=== PATIENT | female | born 1940 | race African-American/Black ===

== ENCOUNTER 2018-10-02 19:41 | Inpatient (IN) ==
--- NOTE | 2018-10-02 20:22 | Diag Imaging Result Doc PS360 ---
EXAM: CHEST-1 VIEW - 10/02/2018 HISTORY: history of pna TECHNIQUE: Portable chest COMPARISON: 05/23/2018 FINDINGS: Heart size appears normal. There is infiltrate at the lateral left lower lung. There is mild infiltrate at the right midlung. There is no substantial pleural effusion or pneumothorax identified. The patient's chin overlies the left apex. IMPRESSION: Left lower lung and right midlung infiltrates suspicious for pneumonia. Electronically signed by Danish Andrew 10/02/2018 8:20 PM
[2018-10-02 20:51] LABS: BASO# 0.02 X1000 (0.0-0.2); BASO% 0.2 % (0.0-0.8); EOS% 1.5 % (0.0-10.0); HEMATOCRIT 14.1 % (37.0-47.0); IMM GRAN# 0.03 X1000 (0.0-0.04); IMM GRAN% 0.2 % (0.0-0.5); LYMPH# 1.54 X1000 (1.2-3.4); LYMPH% 11.8 % (20.5-51.1); MCHC 26.2 g/dL (33-37); MCV 87.6 FL (81-99); MONO# 0.86 X1000 (0.11-0.59); MONO% 6.6 % (1.7-9.3); MPV 10.4 FL (7.4-10.4); NEUT# 10.36 X1000 (1.4-6.5); NEUT% 79.7 % (42.2-75.2); PLT 607 X1000 (130-400); RBC 1.61 XMIL (4.2-5.4); RDW 23.1 % (11.5-14.5); WBC 13.01 X1000 (4.8-10.8)
[2018-10-02 20:52] LABS: HEMOGLOBIN 3.7 g/dL (12.0-16.0)
[2018-10-02] MEDS ORDERED: TYLENOL PO ONE (21:04)
[2018-10-02 21:10] LABS: AGAP 10; ALB/GLOB RATIO 0.7; ALKALINE PHOSPHATASE 106 U/L (32-104); BUN 21 mg/dL (8-22); CALCIUM 9.3 mg/dL (8.8-10.2); CHLORIDE 102 mmol/L (98-107); COSMO 288; CREATININE 0.5 mg/dL (0.5-0.9); ESTIMATED GFR > 60; GLUCOSE 108 mg/dL (70-104); GOT 19 U/L (10-30); GPT 16 U/L (10-36); SODIUM 143 mmol/L (136-145); TCO2 31 mmol/L (25-35); TOTAL BILIRUBIN 0.22 mg/dL (0.20-1.00); TOTAL PROTEIN 7.5 g/dL (6.3-8.3)
[2018-10-02] MEDS ORDERED: ZOSYN 3.375 GM in NS 50 ML IV ONE (21:28)
[2018-10-02] MEDS ORDERED: VANCOMYCIN 1 GM/NS 1 GM/250 ML IVPB IV ONE (21:28)
--- NOTE | 2018-10-02 22:10 | PROVIDER DOCUMENTATION ---
This chart was entered by Mitzy Phillips Scribe, acting as scribe for Pierre Zaragoza MD. HPI-General Adult - General Chief Complaint: Abnormal Lab[s] Stated Complaint: ABNORMAL LABS/PNEUMONIA Time Seen by Provider: 10/02/18 19:51 Source: patient Allergies/Adverse Reactions: Patient Allergies Allergy/AdvReac Type Severity Reaction Status Date / Time Penicillins Allergy Mild HIVES Verified 10/02/18 21:06 Sulfa (Sulfonamide Allergy Mild RASH Verified 10/02/18 21:06 Antibiotics) metronidazole [From Flagyl] Allergy Unknown Verified 10/02/18 21:06 Home Medications: Home Medication List Medication Instructions Recorded Confirmed Last Taken Type Levothyroxine [Synthroid] 150 microgm GT QAM 06/02/13 10/02/18 02/18/16 06:00 History Allopurinol [Zyloprim] 100 mg GT DAILY 10/16/13 10/02/18 02/17/16 09:00 History Acetaminophen [Tylenol] 650 mg PO Q4-6H PRN PRN #0 tablet 02/22/16 10/02/18 Unknown Rx Albuterol 2.5MG/Ipratrop 0.5MG 3 ml INH BID 03/05/18 10/02/18 Unknown History [Duoneb (A & A)] Cetirizine HCl [Zyrtec] 10 mg GT DAILY 03/05/18 10/02/18 Unknown History Rivastigmine [Exelon 13.3MG/24Hrs] 1 each TD DAILY 03/05/18 10/02/18 Unknown History Sertraline HCl 25 mg GT BID 03/05/18 10/02/18 Unknown History Albuterol Sulfate 2.5 mg IH Q6H PRN PRN 10/02/18 10/02/18 Unknown History Diclofenac 1% Gel [Voltaren 1% Gel] 4 gm TOP BID 10/02/18 10/02/18 Unknown History Gabapentin [Neurontin] 100 mg GT BID 10/02/18 10/02/18 Unknown History Loperamide HCl [Imodium A-D] 2 mg GT TID 10/02/18 10/02/18 Unknown History Loperamide HCl [Imodium A-D] 2 mg PO PRN PRN 10/02/18 10/02/18 Unknown History Lorazepam [Ativan] 0.5 mg GT QHS 10/02/18 10/02/18 Unknown History Melatonin 5 mg GT HS 10/02/18 10/02/18 Unknown History Menthol/Zinc Oxide Ointment 1 applicatn TOP HS 10/02/18 10/02/18 Unknown History [Calmoseptine Ointment] Pyridostigmine [Mestinon] 60 mg PO Q6H 10/02/18 10/02/18 Unknown History Tramadol [Ultram] 50 mg GT Q6H PRN PRN 10/02/18 10/02/18 Unknown History - History of Present Illness -Gen Adult Nature of Presenting Problems: Pt is 78/F presenting to ED from [facility]. Pt is reported to have low H&H as well as chronic pneumonia. Location of Pain/Injury: reports: other (pt does not report any pain) Pain Radiation: reports: no radiation Quality of Pain: reports: none Severity: reports: mild Onset/Duration: reports: just prior to arrival Timing: reports: still present Context/Activities at Onset: reports: none Modifying Factors: improves with: nothing (pt is not reporting any symptoms at this time) Associated Symptoms: reports: denies symptoms Similar Symptoms Previously?: Yes Review of Systems - Adult - REVIEW OF SYSTEMS - ADULT Constitutional: denies: fever Eyes: reports: no symptoms reported Ears, Nose, Mouth & Throat: reports: no symptoms reported Cardiovascular: denies: chest pain, edema Respiratory: reports: no symptoms reported. denies: cough, shortness of breath , wheezing Gastrointestinal: reports: no symptoms reported Genitourinary: reports: no symptoms reported Musculoskeletal: reports: no symptoms reported Integumentary: reports: no symptoms reported Neurological: reports: no symptoms reported. denies: headache/migraines, syncope, tremors Psychiatric: reports: no symptoms reported Endocrine: reports: no symptoms reported Allergic/Immunologic: reports: no symptoms reported All Other Systems: Reviewed and Negative Past History - Adult - PAST MEDICAL HISTORY-ADULT Review of Records: reports: Old Records Reviewed, Nursing Assessment Review, Medications Reviewed, Social history reviewed & non-contributory. Major Childhood Illnesses: reports: denies history Cardiovascular: reports: HTN, hyperlipidemia Respiratory: reports: other (throat cancer) Gastrointestinal: reports: denies history Obstetrical/Gynecological: reports: other (breast cancer) Genitourinary: reports: denies history Musculoskeletal: reports: other (gout) Neurological: reports: dementia Endocrine/Immune: reports: Diabetes, thyroid disorder Other Conditions: reports: other cancer (throat), other - PRIOR SURGERIES/PROCEDURES Surgical/Procedure History: reports: hysterectomy, orthopedic (extremity), other , back/neck - PRIOR HOSPITALIZATIONS Prior Hospitalizations: reports: for other non-related - IMMUNIZATION STATUS Childhood Immunizations: See Nurse Assessment Flu Vaccine: See Nurse Assessment - FAMILY HISTORY Family History: reviewed, not pertinent - SOCIAL HISTORY Smoking: denies, non-smoker Provider spent 3-5 mins advising pt. on dangers of tobacco.: Discussed manners to quit use, and f/u contacts for add'l counseling. Substance Use: none/never Alcohol Use Frequency: never Living Situation: care facility Physical Exam-General - PHYSICAL EXAM-ADULT Initial Vital Signs Reviewed: Yes - CONSTITUTIONAL General Appearance: alert, no apparent distress, thin, other (pt is thin and curled up in the hospital bed.) - EYES Eyes: PERRL/EOMI, pink conjunctivae - HEAD, EARS, NOSE, MOUTH & THROAT HENMT: normocephalic/atraumatic, moist mucous membranes, normal ENT inspection, TMs normal - NECK Neck: non-tender, full range of motion, supple, normal inspection - RESPIRATORY Respiratory: chest non-tender, lungs clear, normal breath sounds - CARDIOVASCULAR Cardiovascular: normal peripheral pulses, regular rate, rhythm, no edema - GASTROINTESTINAL (ABDOMEN) Abdominal Exam: normal bowel sounds, non tender, soft - LYMPHATIC Lymphatic: no adenopathy - MUSCULOSKELETAL Back Exam: normal inspection, no CVA tenderness, no vertebral tenderness Extremity: normal range of motion, non-tender, normal gait, normal inspection - SKIN Integumentary: normal color, warm/dry - NEUROLOGIC Neurologic: grossly normal - PSYCHIATRIC Psych/Mental Status: normal mood/affect, normal thought content, normal thought process, oriented x 3 (pt is oriented, but slow to speak) Progress - PLAN OF CARE/RESULTS Progress/Plan/Lab Results: Vital Signs - 8 hr 10/02/18 19:50 10/02/18 19:51 10/02/18 19:57 Temperature 98.2 F Pulse Rate 96 H Respiratory Rate 18 Blood Pressure 117/63 117/63 O2 Sat by Pulse Oximetry 99 98 98 10/02/18 20:00 10/02/18 20:02 10/02/18 20:10 Temperature Pulse Rate 94 H 96 H 108 H Respiratory Rate 18 19 21 Blood Pressure 103/48 O2 Sat by Pulse Oximetry 100 100 100 10/02/18 20:20 10/02/18 20:30 Temperature Pulse Rate 98 H 96 H Respiratory Rate 20 20 Blood Pressure O2 Sat by Pulse Oximetry 100 100 Orders Category Date Time Status cxr [CHEST-1 VIEW] [RAD] Stat Exams 10/02/18 19:53 Completed CBC WITH ELECTRONIC DIFF [HEME] Stat Lab 10/02/18 20:22 Ordered COMPREHENSIVE METABOLIC PANEL [CHEM] Stat Lab 10/02/18 20:22 Ordered LACTATE, PLASMA [CHEM] Stat Lab 10/02/18 20:22 Ordered OCCULT BLOOD SCREENING [STOOL] Stat Lab 10/02/18 19:56 Uncollected PRO B-NATRIURETIC PEPTIDE Stat Lab 10/02/18 20:22 Ordered TROPONIN T Stat Lab 10/02/18 20:22 Ordered TYPE & SCREEN [BBK] Stat Lab 10/02/18 20:30 Ordered Pt found to be anemic, transfusion ordered, CXR shows PNA, ordererd abx, will admit Result Diagrams: 10/02/18 20:22 10/02/18 20:22 Departure - Departure Date of Disposition Decision: 10/02/18 Time of Disposition Decision: 22:08 DIAGNOSIS: Anemia Qualifiers: Anemia type: unspecified type Qualified Code(s): D64.9 - Anemia, unspecified Pneumonia Qualifiers: Pneumonia type: due to unspecified organism Laterality: bilateral Lung location : unspecified part of lung Qualified Code(s): J18.9 - Pneumonia, unspecified organism Disposition: ADMITTED INPATIENT 09 Certified Medical Emergency: Emergent Condition: Critical Referrals and Follow-Ups: Robbin Song MD [Primary Care Provider] - - Critical Care Note This patient required my direct & personal management of CC.: No Attestation - Physician/ MARCE Attestation Patient care was provided by Advanced Practice Provider:: No The physician spent face to face time with patient:: Yes Advanced Practice Provider documentation review:: Supervising physician onsite and consulted in the evaluation and care of this patient. The physician did have a face to face encounter with the patient. This chart was documented by the indicated scribe, (Phillips,Mitzy L., Scribe) and accurately reflects the services I performed and decisions made by me, Pierre Zaragoza MD, as attested by the provider's signature.
[2018-10-02] MEDS ORDERED: NS 1,000 ML IV ONE (22:26)
[2018-10-02] MEDS ORDERED: NS 1,000 ML ONE (22:28)
[2018-10-02] MEDS ORDERED: CLINDAMYCIN 600 MG/D5W 600 MG/50 ML IVPB IV SCH (22:30)
[2018-10-02] MEDS ORDERED: TYLENOL WITH CODEINE #3 PO ONE (22:36)
[2018-10-02] MEDS ORDERED: ZOFRAN IV PRN (22:37)
[2018-10-02] MEDS ORDERED: VANCOMYCIN IV PER PHARMACY MISC SCH (22:45)
[2018-10-02 23:30] LABS: IRON SATURATION 3 %; TIBC 246 ug/dL
[2018-10-02] MEDS ORDERED: AZACTAM 1 GM in NS 50 ML IV SCH (23:30)
--- NOTE | 2018-10-02 23:30 | HISTORY AND PHYSICAL ---
PRIMARY CARE PROVIDER: Robbin Song. CHIEF COMPLAINT: Low blood count. HISTORY OF PRESENT ILLNESS: This is an 78-year-old female who comes in from [facility]. She was sent here from the emergency room related to a low hemoglobin and hematocrit. She has a past medical history of laryngeal cancer with dementia, hypothyroidism, myasthenia gravis, clinical depression, gout and breast cancer. She had labs tested today because the daughter felt that she looked pale. At [facility] was found to have a low hemoglobin and hematocrit. Was repeated in the emergency room. The hemoglobin and hematocrit were noted to be 3.7 and 14.1 respectively. The patient recently was found to have a displaced G tube which was replaced I believe 10 days ago in the emergency room. It is now noted to be in correct position per abdominal x-ray that was completed. The daughter stated that around 7 days ago she had a stool that she felt may have some blood in it. An occult stool is still pending. The patient will be admitted for further evaluation and treatment. PAST MEDICAL HISTORY: See HPI. PREVIOUS SURGICAL HISTORY: Right BKA, right mastectomy, hysterectomy, C-spine surgery, G tube placement and tracheostomy. SOCIAL HISTORY: Stopped smoking 15 years ago. No alcohol or illicit drugs. Has lived in the senior living for the past 4 years. ALLERGIES: Penicillin, sulfa and Flagyl. REVIEW OF SYSTEMS: A 14-point review of systems could not be accurately assessed with the patient. She was somewhat short of breath during the examination. She did answer some questions. Stated that she was not in any pain until her leg was examined. She has a skin ulceration on her left lower extremity which is tender to palpation. Other pertinent positives for admission are listed under the HPI. PHYSICAL EXAMINATION: VITAL SIGNS: Temperature 98.2, pulse 96, respirations 20, blood pressure 103/48 , oxygen saturation 100% on room air. GENERAL: Pleasant 78-year-old female. She is emaciated and chronically ill appearing, oriented to person only. She is known to have dementia. Daughter is at bedside, very attentive. HEENT: Head is atraumatic, normocephalic. Pupils equal, round, reactive to light. Extraocular eye movement is intact. Sclerae are anicteric. Conjunctiva is pale. Oral mucosa is dry. NECK: Supple. No JVD. No thyromegaly. Trachea is midline. No cervical lymphadenopathy. CARDIAC: S1, S2 appreciated. No murmurs, gallops, rubs. LUNGS: Coarse bilaterally. Mild expiratory wheeze. Symmetric rise and fall with respirations. ABDOMEN: Soft, nondistended, nontender. PEG tube in place. No erythema noted. Bowel sounds present, normoactive. No pulsatile mass. No organomegaly. EXTREMITIES: Right BKA noted. Left lower extremity mid calf there is a 2 x 2 area of breakdown which has a purulent drainage. No clubbing, cyanosis, edema. One-plus pedal pulses. NEUROLOGICAL: Oriented to person. No focal or motor deficits. Otherwise nonfocal examination. SKIN: Pale. Area of breakdown noted on extremity. Otherwise clean, dry and intact. DIAGNOSTIC DATA: Chest x-ray shows left lower lobe and right mid lung infiltrates. LABORATORY DATA: WBC 13.01. Hemoglobin 3.7. Hematocrit 14.1. Platelet count 607. Chemistry panel within normal limits other than a glucose of 108. ASSESSMENT AND PLAN: 1. Profound anemia. The daughter had stated that she had a stool which was suspicious for blood. We will start on PPI 40 mg IV q.12 hours. Consult GI. Occult stool is pending. Transfuse 2 units of packed red blood cells. Recheck laboratory data and trend hemoglobin and hematocrit. We will also check iron indices. 2. Aspiration pneumonia versus hospital-acquired pneumonia. We will treat patient with Azactam, vancomycin and clindamycin related to her penicillin and Flagyl allergies. We will order blood cultures. Continue DuoNebs. 3. Fluid volume depletion. We will give normal saline until blood is ready to transfuse. 4. Myasthenia gravis. Continue home medications. 5. Dementia. Continue home medication. 6. Hypothyroidism. Continue Synthroid. 7. Skin ulceration. This will be cultured and rebandaged. Should be suitably covered by antibiotic selection above for pneumonia. Further recommendations per patient clinical course. Dictated by ALEXANDRA Hamilton for Nilesh Monroy MD cc: ALEXANDRA Hamilton MD Kirk L. Jackson, MD Pt's exam was noted for severe pallor, bilateral coarse crepitations and 2 cm ulcer in the popliteal area packed with gauze. It appears that anemia could have been due to chronic GI bleed and or some degree of bone marrow suppression. Anemia work up to include reticulocyte count would be beneficial. Discussed and agree with abx regimen. MTDD
[2018-10-02 23:34] LABS: TOTAL IRON 8 ug/dL (49-151); UNBOUND IRON 238 ug/dL (112-346)
[2018-10-02] MEDS: MELATONIN GT SCH (23:44)
[2018-10-02] MEDS: MESTINON PO SCH (23:44)
[2018-10-02] MEDS: ATIVAN GT SCH (23:44)
[2018-10-02 23:46] LABS: FERRITIN 153 ng/mL (13-150)
[2018-10-02] MEDS: PROTONIX IV SCH (23:48)
[2018-10-02] MEDS: SODIUM CHLORIDE 0.9% INJ SCH (23:48)
[2018-10-03] MEDS: AZACTAM 1 GM in NS 50 ML IV SCH ×4 (00:14→17:20)
[2018-10-03] MEDS: CLINDAMYCIN 600 MG/D5W 600 MG/50 ML IVPB IV SCH ×5 (00:44→23:06)
[2018-10-03] MEDS ORDERED: CALMOSEPTINE OINTMENT TOP PRN (01:53)
[2018-10-03 03:04] LABS: URINE SOURCE CATH
[2018-10-03 03:07] LABS: BILIRUBIN URINE NEGATIVE (NEGATIVE); BLOOD URINE SMALL (NEGATIVE); COLOR ORANGE; GLUCOSE URINE NEGATIVE (NEGATIVE); KETONE URINE NEGATIVE (NEGATIVE); LEUKOCYTES URINE LARGE (NEGATIVE); NITRITE URINE NEGATIVE (NEGATIVE); PH URINE 6.5; PROTEIN URINE 30 mg/dL (NEGATIVE); SP GRAVITY URINE 1.015; TURBIDITY URINE TURBID (CLEAR); UROBILINOGEN URINE NORMAL (NORMAL)
[2018-10-03 03:11] LABS: UR EPITHELIAL CELLS <10 /HPF (<10); URINE BACTERIA 4+ /HPF; URINE RBC <10 /HPF (<10); URINE WBC TNTC /HPF (<10); URINE YEAST PRESENT
[2018-10-03] MEDS: SYNTHROID GT SCH (06:30)
[2018-10-03] MEDS: MESTINON PO SCH ×4 (06:30→22:30)
[2018-10-03 07:07] LABS: BASO# 0.04 X1000 (0.0-0.2); BASO% 0.2 % (0.0-0.8); EOS# 0.28 X1000 (0.0-0.7); EOS% 1.5 % (0.0-10.0); HEMATOCRIT 28.9 % (37.0-47.0); HEMOGLOBIN 9.1 g/dL (12.0-16.0); IMM GRAN# 0.15 X1000 (0.0-0.04); IMM GRAN% 0.8 % (0.0-0.5); LYMPH# 1.45 X1000 (1.2-3.4); LYMPH% 7.7 % (20.5-51.1); MCH 28.3 PG (27-31); MCHC 31.5 g/dL (33-37); MCV 89.8 FL (81-99); MONO# 1.02 X1000 (0.11-0.59); MONO% 5.4 % (1.7-9.3); MPV 10.5 FL (7.4-10.4); NEUT# 15.97 X1000 (1.4-6.5); NEUT% 84.4 % (42.2-75.2); PLT 495 X1000 (130-400); RBC 3.22 XMIL (4.2-5.4); RDW 17.9 % (11.5-14.5); WBC 18.91 X1000 (4.8-10.8)
[2018-10-03 07:31] LABS: AGAP 12; BUN 18 mg/dL (8-22); CALCIUM 8.3 mg/dL (8.8-10.2); CHLORIDE 105 mmol/L (98-107); COSMO 283; CREATININE 0.5 mg/dL (0.5-0.9); ESTIMATED GFR > 60; GLUCOSE 93 mg/dL (70-104); POTASSIUM 4.3 mmol/L (3.5-5.1); SODIUM 141 mmol/L (136-145); TCO2 24 mmol/L (25-35)
[2018-10-03] MEDS: DUONEB (A & A) INH SCH ×2 (07:37→19:20)
[2018-10-03] MEDS: ALBUTEROL NEB INH PRN (08:00)
[2018-10-03] MEDS: ZOLOFT GT SCH ×2 (10:04→22:29)
[2018-10-03] MEDS: PROTONIX IV SCH ×2 (10:05→22:29)
[2018-10-03] MEDS: SODIUM CHLORIDE 0.9% INJ SCH ×2 (10:05→22:29)
[2018-10-03] MEDS: ZYRTEC SCH (10:05)
[2018-10-03] MEDS: NEURONTIN GT SCH ×2 (10:05→22:29)
[2018-10-03] MEDS: IMODIUM GT SCH ×3 (10:05→22:29)
[2018-10-03] MEDS: EXELON 13.3MG/24HRS TD SCH (11:36)
--- NOTE | 2018-10-03 11:40 | PROGRESS NOTE ---
DATE: 10/03/2018 SUBJECTIVE: The patient is nonverbal and no acute issues noted as per nursing staff. OBJECTIVE: Vital Signs: Temperature 98 degrees, heart rate 89, respiratory rate 12, blood pressure 104/52, and O2 saturation 100% pain on 2 L nasal cannula. General: This is a chronically ill-appearing and cachectic 78-year-old, female lying in bed in no acute distress. HEENT: Head is normocephalic and atraumatic. Neck: No JVD noted. No carotid bruits. No lymphadenopathy. No thyromegaly. Cardiovascular: S1, S2 heard. No murmurs, gallops, or rubs. Regular rate and rhythm. Respiratory: Coarse breath sounds noted in both pulmonary boswell. Minimal expiratory wheezing noted. Patient is not using any accessory muscles or having work of breathing. Abdomen: Soft. Nontender to palpation. PEG tube in place. No erythema noted around it. Bowel sounds present. No organomegaly. Extremities : Right below-the- knee amputation. Left lower extremity, there is a lesion with 2 x 2 area breakdown which has minimal purulent drainage not covered by dressing. There is no clubbing or cyanosis noted. Peripheral pulses present but faint. Neurological: Patient is nonverbal. Moved apparently for extremities slowly. LABORATORY DATA: White cell count 18.91, hemoglobin 9.1, hematocrit 28.9 and platelets 495,000. Normal BMP. Prealbumin is 10.4. ASSESSMENT AND PLAN: 1. Profound anemia. Apparently at admission, she was found to have hemoglobin of 3.7. So far, she has received 2 units of blood. Hemoglobin is 9.1 today. I am not sure if the initial hemoglobin count was real or not because with 2 units of blood I do not expect to have an increase of almost 6 points of hemoglobin. In any case, with a 9.1 hemoglobin, I am happy with that and I am not planning to do any more transfusions. Gastroenterology has been consulted for possible GI bleeding. From my standpoint, considering history of laryngeal cancer, I am going to order a CT of abdomen and pelvis and also of the chest that could explain this anemia. 2. Healthcare associated pneumonia. Patient lives in intermediate so at this point, patient is on vancomycin, clindamycin and Azactam. The patient is allergic to penicillin and Flagyl. Blood cultures are still pending. We will continue with same management. We will continue with Alison. 3. Myasthenia gravis. We will continue home medications. 4. Severe protein calorie malnutrition. We will consult dietitian. 5. Advanced dementia. We will continue home medication. 6. Hypothyroidism. We will continue with Synthroid. 7. Skin ulceration. Patient has been re-bandaged, and cultures have been ordered. It looks like there is some ruptured tendons below left knee so will consult General surgery to see if there is anything it can be done for her. 8. Disposition depending upon the clinical course. cc: Adria Morales MD MTDD
--- NOTE | 2018-10-03 13:02 | Diag Imaging Result Doc PS360 ---
EXAM: CT THORAX/ABD/PELVIS W/CON INDICATION: severe anemia, history of laryngeal cancer TECHNIQUE: This exam was performed using automated exposure control, adjustment of mA or kV according to patient size, and/or use of iterative reconstruction technique. COMPARISON: CT chest dated 01/13/[address] abdomen dated 01/02/2018 FINDINGS: CHEST: There are patchy infiltrates consistent with pneumonia seen bilaterally involving the right upper lobe, right lower lobe, left upper lobe, and left lower lobe. It is worst on the left. There is a small left pleural effusion and there is atelectasis at the left lung base. There is a background of fibrosis and there is stable bronchiectasis at the lower lobes. There is mediastinal and hilar lymphadenopathy that has worsened somewhat during the interval. At least part of this may be reactive. There is extensive mucous plugging on the left, especially in the left mainstem bronchus. ABDOMEN/PELVIS: The gallbladder is distended and there is moderate intrahepatic and extrahepatic biliary dilatation as well as pancreatic ductal dilatation this is worsened during the interval. No gallbladder wall thickening is appreciated. The liver is essentially unremarkable. The spleen and adrenal glands are grossly unremarkable. There are a couple of simple renal cysts on the right. The urinary bladder is partially distended. It is grossly unremarkable, otherwise. There is a moderate rectal fecal impaction. The diameter of the impacted rectum measures up to 7.1 cm. There is uncomplicated diverticulosis coli. A PEG tube is in place. There is no evidence of bowel obstruction. The remainder of the GI tract is essentially unremarkable. 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 The left iliac crest sclerotic focus seen on the previous study is unchanged. No new bony lesions are identified. IMPRESSION: 1.Patchy infiltrates throughout both lungs indicating pneumonia. 2.Left mainstem bronchus mucous plugging. 3.Bilateral atelectasis is worse on the left. 4.Mediastinal and hilar lymphadenopathy that appears to be at least slightly worse than the previous study. 5.Distended gallbladder as well as biliary and pancreatic ductal dilatation that appears more prominent than previously. 6.Rectal fecal impaction. 7.Other incidental/nonacute findings detailed above. Electronically signed by Jesus Joseph 10/03/2018 1:00 PM
[2018-10-03 16:10] LABS: ALBUMIN 2.7 g/dL (3.5-5.0); MAGNESIUM 2.5 mg/dL (1.5-2.7); PHOSPHORUS 3.5 mg/dL (2.7-4.5)
[2018-10-03] MEDS: TYLENOL WITH CODEINE #3 PO PRN (17:46)
--- NOTE | 2018-10-03 18:28 | GASTROENTEROLOGY CONSULTATION ---
DATE: 10/03/2018 REASON FOR CONSULTATION: Severe iron deficiency anemia. HISTORY OF PRESENT ILLNESS: Ms. Lyndsay Lawrence is 78-year-old woman with past medical history of laryngeal cancer, dementia, hypothyroidism, myasthenia gravis, depression, gout , right BKA, who presents from [facility] with profound anemia. History unable to be obtained from patient given her underlying dementia. Per report, the daughter felt that the patient was pale looking at the fpc, and a hemoglobin and hematocrit was checked that revealed a H/H of 3.7 and 14.1 respectively. The patient recently had displaced G-tube which was replaced about 10 days ago in the emergency room. There is some question of whether the patient has some blood in her stool recently. PAST MEDICAL HISTORY: As per HPI. PAST SURGICAL HISTORY: Right BKA, right mastectomy, hysterectomy, C-spine surgery, G-tube placement and tracheostomy. SOCIAL HISTORY: Prior smoker, quit smoking 15 years ago. No drug use or alcohol. She has been living in a fpc for the last 4 years. ALLERGIES: To penicillin, sulfa, and Flagyl. REVIEW OF SYSTEMS: Unable to obtain given dementia PHYSICAL EXAMINATION: Temperature 98 degrees, heart rate 89, blood pressure 104 /52, O2 saturation 100% on 2 L nasal cannula.General: Patient is awake, alert, no acute distress, severely cachectic, frail, older than stated age. HEENT: Sclerae anicteric. Moist mucous membranes. Neck: No JVD. No lymphadenopathy. Cardiac: Regular rate and rhythm. No murmurs. Lungs: Clear to auscultation bilaterally. Abdomen: PEG site clean, dry, and intact. Abdomen nondistended. Bowel sounds present. No rebound or guarding. Nontender. Extremities: A right BKA. Left lower extremity thin, no clubbing, cyanosis, or edema. Neuro: Patient is moving all extremities symmetrically, nonfocal. LABS: White count of 18.9, hemoglobin 9.1 after 2 units of packed red blood cells from 3.7, platelets of 495,000. Sodium 143, potassium 4.3, chloride 105, bicarb 24, BUN 18, creatinine 0.5, glucose 93, calcium 8.3, prealbumin 2.4, iron 8, TIBC 246, ferritin 153, vitamin B12 1585, folate 9.7, total bilirubin 0.22, AST 19, ALT 16, alkaline phosphatase 106, troponin 0.026, proBNP of 1764. UA shows proteinuria, large leukocyte esterase consistent with urinary tract infection. IMAGING: Chest x-ray on 10/02 showed left lower lung and right midlung infiltrate suspicious for pneumonia. A CT chest, abdomen, pelvis was done this morning and results are pending. ASSESSMENT AND PLAN: Ms Lyndsay Lawrence is an 78-year-old woman with a history of laryngeal cancer, severe protein calorie malnutrition, who presents with new onset severe iron deficiency anemia without any obvious overt gastrointestinal bleeding currently. Hemoglobin is 9.1 after 2 units from 3.7. Per report there was some question of whether she had some rectal bleeding prior to being admitted. No hematemesis or vomiting. Gastrostomy tube is in place. She is not on any blood thinners. She has been started on pantoprazole 40 mg twice a day as well as broad-spectrum antibiotics for infection. We will continue to monitor her hemoglobin and hematocrit q.12 to 24 hours. Transfuse as needed to maintain hemoglobin 7-8. The patient is severely cachectic and malnourished. Recommend a nutrition consult for optimal tube feed recommendation. There needs to be a discussion with family as well as probably palliative care about goals of care at this time as it would be very difficult for us to prep her and to undergo colonoscopy and she is severely debilitated which would make the procedure high risk for anesthesia. For now will treat her supportively. Please call with any questions or concerns. Will follow with you. MTDD
[2018-10-03] MEDS: MELATONIN GT SCH (22:29)
[2018-10-03] MEDS: ATIVAN GT SCH (22:29)
--- NOTE | 2018-10-03 23:26 | GENERAL SURGERY CONSULTATION ---
DATE: 10/03/2018 REQUESTING PHYSICIAN: Dr. Bobby. CONSULT CONCERNING: Left leg wound. HISTORY OF PRESENT ILLNESS: An 78-year-old female who comes from [facility] With low blood count. She has got a past medical history laryngeal cancer, dementia and hypothyroidism, myasthenia gravis, clinical depression, gout and breast cancer. She was initially admitted again from a low hematocrit and hemoglobin and patient has been admitted for further evaluation. Is also noted that she had a wound noted to the popliteal fossa on her left leg. She apparently had some compression stockings on while the nursing facility. Wound Care saw the patient and I was asked to evaluate the patient. The patient is currently nonverbal. PAST MEDICAL HISTORY: Includes laryngeal cancer, dementia, hypothyroidism, myasthenia gravis, clinical depression, gout, history of breast cancer. PAST SURGICAL: Includes right BKA, mastectomy, hysterectomy, C-spine surgery, G-tube placement and tracheostomy. SOCIAL HISTORY: [facility]. ALLERGIES: Penicillin, sulfa, Flagyl. FAMILY HISTORY: Unobtainable secondary to patient's mental status. REVIEW OF SYSTEM: Unable to obtain secondary to patient's mental status. PHYSICAL EXAMINATION: Vital Signs: Patient is currently afebrile but has a heart rate in the 100s, blood pressure is 164/83. General: Elderly female looks chronically ill. HEENT: Normocephalic, atraumatic. Pupils equal, round, reactive to light. Mucous membranes moist. Oropharynx benign. Neck: Supple. Trachea midline. Cardiovascular: Regular rate and rhythm. Lungs: Grossly clear. Abdomen: Soft, nontender, nondistended. Extremities: BKA noted on the right side. In the lower extremity there is a wound noted to the popliteal fossa but does not have any active purulent drainage. There is an exposed tendon this area measures probably 2 cm x 2 cm. Neurologic: No obvious focal deficits but patient is nonverbal at this time. Skin: Wound as noted above. Vascular: All extremities appear to be perfused. LABORATORY: White blood cell count is 18, hematocrit 28, platelet count 495,000. CT scan independently reviewed and radiology report reviewed. There is signs of pneumonia, hilar and mediastinal lymphadenopathy, some distended gallbladder, fecal impaction. ASSESSMENT AND PLAN: An 78-year-old female with leg wound. Leg wound. At this time, agree with wound care assessment and plan. Will continue with Hydrogel, cover with petroleum gauze and monitor the wound closely and change twice a day. At this point will try to avoid any kind of surgical intervention. cc: Otf Amaya MD
[2018-10-04] MEDS: AZACTAM 1 GM in NS 50 ML IV SCH ×3 (00:13→17:41)
[2018-10-04] MEDS: SYNTHROID GT SCH ×2 (05:14→06:00)
[2018-10-04] MEDS: MESTINON PO SCH ×4 (05:14→22:08)
[2018-10-04 06:49] LABS: BASO# 0.02 X1000 (0.0-0.2); BASO% 0.1 % (0.0-0.8); EOS# 0.29 X1000 (0.0-0.7); EOS% 1.9 % (0.0-10.0); HEMATOCRIT 28.4 % (37.0-47.0); HEMOGLOBIN 8.9 g/dL (12.0-16.0); IMM GRAN# 0.04 X1000 (0.0-0.04); IMM GRAN% 0.3 % (0.0-0.5); LYMPH# 1.26 X1000 (1.2-3.4); LYMPH% 8.3 % (20.5-51.1); MCH 27.8 PG (27-31); MCHC 31.3 g/dL (33-37); MCV 88.8 FL (81-99); MONO% 4.6 % (1.7-9.3); MPV 10.1 FL (7.4-10.4); NEUT# 12.96 X1000 (1.4-6.5); NEUT% 84.8 % (42.2-75.2); PLT 505 X1000 (130-400); RDW 18.4 % (11.5-14.5); WBC 15.27 X1000 (4.8-10.8)
[2018-10-04 07:06] LABS: AGAP 10; BUN 15 mg/dL (8-22); CHLORIDE 107 mmol/L (98-107); COSMO 284; CREATININE 0.4 mg/dL (0.5-0.9); ESTIMATED GFR > 60; GLUCOSE 105 mg/dL (70-104); SODIUM 142 mmol/L (136-145); TCO2 25 mmol/L (25-35)
[2018-10-04 07:18] LABS: EOS 6 % (1-10); LYMPHS 2 % (21-51); NRBC 1 % (0-0); SEGS 92 % (42-75)
[2018-10-04] MEDS: CLINDAMYCIN 600 MG/D5W 600 MG/50 ML IVPB IV SCH ×2 (08:11→17:05)
[2018-10-04] MEDS: EXELON 13.3MG/24HRS TD SCH (08:12)
[2018-10-04] MEDS: NEURONTIN GT SCH ×2 (08:12→22:09)
[2018-10-04] MEDS: ZYRTEC SCH (08:12)
[2018-10-04] MEDS: IMODIUM GT SCH ×3 (08:12→22:09)
[2018-10-04] MEDS: ZOLOFT GT SCH ×2 (08:13→22:09)
[2018-10-04] MEDS: DUONEB (A & A) INH SCH ×2 (08:14→19:52)
[2018-10-04] MEDS: SODIUM CHLORIDE 0.9% INJ SCH ×2 (11:37→22:08)
[2018-10-04] MEDS: PROTONIX IV SCH ×2 (11:37→22:08)
--- NOTE | 2018-10-04 12:26 | PROGRESS NOTE ---
DATE: 10/04/2018 SUBJECTIVE: Patient is verbal today. The patient reports no complaints at this time. She is not in pain. Patient has hoarseness probably from surgery from laryngeal cancer. OBJECTIVE: Vital Signs: Temperature 98.6 degrees, heart rate 86, respiratory rate 18, blood pressure 150/67, O2 saturation 93% on 3 L nasal cannula. General examination: This is a chronically ill-looking, 78-year-old female, lying in bed in no acute distress. HEENT: Head is normocephalic, atraumatic. Mucous membranes very dry. Neck: No JVD noted, no thyromegaly. There is a small depression in the front of the neck that looks like an old surgery. No cervical lymphadenopathy noted. Cardiovascular exam: S1, S2 heard. No murmurs, gallops, or rubs. Regular rate and rhythm. Respiratory exam: Coarse breath sounds in both pulmonary bases, along with mild expiratory wheezing as well. The patient is not using any accessory muscles or having work of breathing. Abdomen: Soft, nontender to palpation. PEG tube in place. No erythema around it. No signs of peritoneal irritation. Extremities: Right itteg-gos-vgnv amputation noted. Left lower extremity with midcalf covered by dressing. Neurological exam: Patient is awake, oriented to person only. LABORATORY DATA: White cell count 15.37, hemoglobin 8.9, hematocrit 28.4, platelets 505. BMP normal. ASSESSMENT AND PLAN: 1. Profound multifactorial anemia. There have not been any signs of gastrointestinal bleeding. So far, she has received 2 units of blood. Hemoglobin is stable at 8.9 today. The patient evaluated by Dr. Mujica from Gastroenterology. She is not of course a candidate for any procedure at this time. Will manage this patient conservatively checking complete blood count daily and transfuse if needed. We will follow recommendations. 2. Healthcare-associated pneumonia. The patient is on vancomycin, clindamycin and Azactam. Patient is allergic to penicillin and Flagyl. Blood cultures still pending. We will continue with same management. 3. Skin ulceration in the left leg. Dr. Amaya has been consulted because there was tendon rupture exposed in that area, but according to General Surgery not a candidate for any procedure as she is a high risk surgical candidate. We will continue to do wound care. 4. Myasthenia gravis. We will continue home medications. 5. Severe protein calorie malnutrition. Dietitian has been consulted to try to enhance her nutrition. 6. Advanced dementia. Will continue home medications. 7. Hypothyroidism. We will continue with Synthroid. 8. Disposition: At this point, we will continue to treat pneumonia. No need for any procedure at this time. We will continue to monitor. cc: Adria Morales MD
--- NOTE | 2018-10-04 13:10 | GENERAL SURGERY PROGRESS NOTE ---
DATE: 10/04/2018 SUBJECTIVE: Patient doing about the same. Wound still dressed to the left lower extremity. We will continue local wound care and monitor the wound. cc: Otf Amaya MD
[2018-10-04] MEDS: VANCOMYCIN 1 GM/NS 1 GM/250 ML IVPB IV SCH (14:33)
[2018-10-04] MEDS: TYLENOL WITH CODEINE #3 PO PRN ×2 (17:47→22:09)
[2018-10-04] MEDS: MELATONIN GT SCH (22:09)
[2018-10-04] MEDS: ATIVAN GT SCH (22:09)
[2018-10-05] MEDS: AZACTAM 1 GM in NS 50 ML IV SCH ×3 (00:23→22:17)
[2018-10-05] MEDS: CLINDAMYCIN 600 MG/D5W 600 MG/50 ML IVPB IV SCH ×3 (00:24→22:17)
[2018-10-05] MEDS: SYNTHROID GT SCH (05:10)
[2018-10-05] MEDS: MESTINON PO SCH ×4 (05:10→22:20)
[2018-10-05 06:56] LABS: BASO# 0.01 X1000 (0.0-0.2); BASO% 0.1 % (0.0-0.8); HEMATOCRIT 29.1 % (37.0-47.0); HEMOGLOBIN 9.1 g/dL (12.0-16.0); IMM GRAN# 0.09 X1000 (0.0-0.04); IMM GRAN% 0.7 % (0.0-0.5); LYMPH# 1.22 X1000 (1.2-3.4); MCHC 31.3 g/dL (33-37); MCV 86.4 FL (81-99); MONO# 0.69 X1000 (0.11-0.59); MONO% 5.1 % (1.7-9.3); MPV 10.3 FL (7.4-10.4); NEUT# 11.12 X1000 (1.4-6.5); NEUT% 82.1 % (42.2-75.2); PLT 562 X1000 (130-400); RBC 3.37 XMIL (4.2-5.4); RDW 18.2 % (11.5-14.5); WBC 13.53 X1000 (4.8-10.8)
--- NOTE | 2018-10-05 07:07 | GENERAL SURGERY PROGRESS NOTE ---
DATE: 10/05/2018 SUBJECTIVE: Patient moved to room 300. She is doing about the same. Wound is still dressed to the left lower extremity. Will continue local wound care and monitoring. cc: Otf Amaya MD
[2018-10-05 07:20] LABS: AGAP 11; BUN 9 mg/dL (8-22); CALCIUM 8.3 mg/dL (8.8-10.2); CHLORIDE 100 mmol/L (98-107); COSMO 272; CREATININE 0.3 mg/dL (0.5-0.9); ESTIMATED GFR > 60; GLUCOSE 116 mg/dL (70-104); POTASSIUM 3.8 mmol/L (3.5-5.1); SODIUM 136 mmol/L (136-145); TCO2 25 mmol/L (25-35)
[2018-10-05 07:21] LABS: ALBUMIN 2.6 g/dL (3.5-5.0); MAGNESIUM 1.8 mg/dL (1.5-2.7); PHOSPHORUS 3.2 mg/dL (2.7-4.5)
[2018-10-05] MEDS: DUONEB (A & A) INH SCH ×2 (07:40→19:34)
[2018-10-05 07:44] LABS: EOS 2 % (1-10); LYMPHS 14 % (21-51); SEGS 84 % (42-75)
[2018-10-05] MEDS: ZOLOFT GT SCH ×2 (08:44→22:20)
[2018-10-05] MEDS: IMODIUM GT SCH ×3 (08:44→22:20)
[2018-10-05] MEDS: EXELON 13.3MG/24HRS TD SCH (08:44)
[2018-10-05] MEDS: NEURONTIN GT SCH ×2 (08:44→22:20)
[2018-10-05] MEDS: ZYRTEC SCH (08:44)
[2018-10-05] MEDS: PROTONIX IV SCH ×2 (10:00→22:20)
[2018-10-05] MEDS ORDERED: VANCOMYCIN IV SCH (10:00)
[2018-10-05] MEDS ORDERED: NS IV SCH (10:00)
--- NOTE | 2018-10-05 10:46 | PROGRESS NOTE ---
DATE: 10/05/2018 SUBJECTIVE: The patient is more verbal today, although she had hoarseness, probably from laryngeal cancer. Apparently, no complaints today. OBJECTIVE: Vital Signs: Temperature 97.7 degrees, heart rate 71, respiratory rate 19, blood pressure 136/70, O2 saturation 97% on room air. General Examination: This is a chronically ill looking, malnourished, 78-year-old, female lying in bed, in no acute distress. HEENT: Head is normocephalic and atraumatic. Mucous membranes are dry. Neck: No JVD noted. There is a small depression in the front of the neck that looks like old surgery from laryngeal cancer. No cervical lymphadenopathy noted. Cardiovascular Examination: S1 and S2 heard. No murmurs, gallops, or rubs. Regular rate and rhythm. Respiratory Examination: Coarse breath sounds still present in both pulmonary bases with mild expiratory wheezing as well. Patient is not using any accessory muscles or having work of breathing. Abdomen: Soft, nontender to palpation. PEG tube in place. No erythema around it. No signs of peritoneal irritation. Extremities: Right gtzee-agn-dmsz amputation noted. Left lower extremity with mid calf covered by a dressing. Neurological Examination: The patient is awake. Oriented in person only. Moves 4 extremities spontaneously. Laboratory Data: White cell count 17.53, hemoglobin 9.1, hematocrit 29.1, platelets 562,000. CBC and BMP normal. ASSESSMENT AND PLAN: 1. Profound multifactorial anemia. We were suspecting gastrointestinal bleeding but there has not been any signs of bleeding coming from the gastrointestinal tract. Gastroenterology has evaluated this patient. Of course, she is not a candidate for any procedure considering her comorbidities. At this point, we will continue checking CBC daily. We will transfuse if needed. 2. Healthcare-associated pneumonia. Patient is on vancomycin, clindamycin, and Azactam. The patient is allergic to penicillin and Flagyl. Cultures still pending. We will continue with the same management. 3. Skin ulceration of the left leg. Surgery recommended wound care but not a surgical candidate. 4. Myasthenia gravis. We will continue home medications. 5. Severe protein calorie malnutrition. Dietitian has been consulted. Patient is receiving nasogastric tube at 35 mL per hour and no residuals. 6. Advanced dementia. We will continue home medications. 7. Hypothyroidism. We will continue with Synthroid. 8. Disposition. At this point, we will continue with the same management. Tomorrow, we will consult palliative care. Considering that we are not going to perform any procedures and patient is more stable from pneumonia, and we are not going to do any surgery regarding wounds in the left neck, will see what we can do tomorrow. cc: Adria Morales MD MTDD
[2018-10-05] MEDS: VANCOMYCIN 1 GM/NS 1 GM/250 ML IVPB IV SCH (16:56)
[2018-10-05] MEDS: TYLENOL WITH CODEINE #3 PO PRN ×2 (17:01→22:20)
[2018-10-05] MEDS: SODIUM CHLORIDE 0.9% INJ SCH (22:20)
[2018-10-05] MEDS: MELATONIN GT SCH (22:20)
[2018-10-05] MEDS: ATIVAN GT SCH (22:20)
[2018-10-06] MEDS: TYLENOL WITH CODEINE #3 PO PRN ×2 (04:54→21:21)
[2018-10-06] MEDS: AZACTAM 1 GM in NS 50 ML IV SCH ×3 (04:54→20:57)
[2018-10-06] MEDS: MESTINON PO SCH ×4 (04:54→22:28)
[2018-10-06] MEDS: CLINDAMYCIN 600 MG/D5W 600 MG/50 ML IVPB IV SCH ×3 (04:54→20:58)
[2018-10-06] MEDS: SYNTHROID GT SCH (04:55)
[2018-10-06 06:38] LABS: BASO# 0.03 X1000 (0.0-0.2); BASO% 0.3 % (0.0-0.8); EOS# 0.35 X1000 (0.0-0.7); EOS% 3.2 % (0.0-10.0); HEMATOCRIT 32.2 % (37.0-47.0); HEMOGLOBIN 10.1 g/dL (12.0-16.0); IMM GRAN# 0.05 X1000 (0.0-0.04); IMM GRAN% 0.5 % (0.0-0.5); LYMPH# 1.34 X1000 (1.2-3.4); LYMPH% 12.1 % (20.5-51.1); MCH 26.9 PG (27-31); MCHC 31.4 g/dL (33-37); MCV 85.9 FL (81-99); MONO# 0.58 X1000 (0.11-0.59); MONO% 5.2 % (1.7-9.3); NEUT% 78.7 % (42.2-75.2); PLT 604 X1000 (130-400); RBC 3.75 XMIL (4.2-5.4); RDW 18.7 % (11.5-14.5); WBC 11.05 X1000 (4.8-10.8)
[2018-10-06 06:56] LABS: AGAP 8; BUN 11 mg/dL (8-22); CALCIUM 8.2 mg/dL (8.8-10.2); CHLORIDE 101 mmol/L (98-107); COSMO 267; CREATININE 0.4 mg/dL (0.5-0.9); ESTIMATED GFR > 60; GLUCOSE 126 mg/dL (70-104); POTASSIUM 3.8 mmol/L (3.5-5.1); SODIUM 133 mmol/L (136-145); TCO2 24 mmol/L (25-35)
[2018-10-06 07:12] LABS: ALBUMIN 2.6 g/dL (3.5-5.0); MAGNESIUM 1.9 mg/dL (1.5-2.7); PHOSPHORUS 3.3 mg/dL (2.7-4.5)
--- NOTE | 2018-10-06 07:14 | GENERAL SURGERY PROGRESS NOTE ---
DATE: 10/06/2018 The patient doing about the same. She does have wound cultures that are Staph aureus, which likely represents colonization of the wound. We will continue local wound care. cc: Otf Amaya MD
[2018-10-06] MEDS: DUONEB (A & A) INH SCH ×2 (07:30→19:30)
--- NOTE | 2018-10-06 09:55 | GASTROENTEROLOGY PROGRESS NOTE ---
DATE: 10/06/2018 REFERRING PHYSICIAN: Adria Morales MD PRIMARY CARE PHYSICIAN: Dr. Robbin Song. SUBJECTIVE: Patient resting in bed. Her family is present at bedside. The patient is more awake today. She is tolerating tube feeds. She is on room air and she is moving her bowels. No fevers reported. OBJECTIVE: Vital signs: Temperature 97.3 degrees, temperature of 86, respiratory rate of 16, blood pressure 124/76, saturating 99% on room air. Body weight of 77 pounds 4.8 ounces. General appearance: Thinly built, lying in bed, in no acute distress. HEENT: Pale conjunctivae with no icterus. NG tube in place. Neck: Supple. Abdomen: Emaciated, soft, nondistended. No guarding. Extremities: She has right below-knee amputation. Neurologic: She is awake, alert. LABORATORIES: Hemoglobin and hematocrit is 10.1 and 32.2. White count of 11.05, platelet count of 604,000. Sodium 133, potassium 3.8, chloride 101, bicarb 24, anion gap of 8, BUN of 11, creatinine 0.4, glucose of 126, calcium is 8.2, phosphorus 3.3, magnesium 1.9. Albumin 2.6. Urine culture showing gram-positive cocci. On 10/03/2018, left knee showed Staphylococcus aureus. Stool occult blood was positive. IMPRESSION AND PLAN: 1. Severe anemia. She was given 2 units of blood transfusion. Hematocrit improved. Hemoccult is positive. At this point in time, we will continue with conservative management. She does not have any signs of overt GI bleeding and her risk for any procedure, including EGD and colonoscopy is higher because of multiple medical comorbid conditions and severe malnourished state. 2. Healthcare associated pneumonia. She is on antibiotics. 3. Myasthenia gravis. Aware. 4. Skin ulceration, left leg. Aware. 5. Dementia. Aware. 6. Severe protein calorie malnutrition. She is on tube feeds. Tolerating them well. 7. Anemia. Continue to watch for now and transfuse as needed. 8. We will start on probiotics, Culturelle 1 capsule p.o. b.i.d. She is on multiple antibiotics. 9. Gastrointestinal prophylaxis with proton pump inhibitor. 10. The above plans discussed with the patient's family and all questions answered. Please call us with any further questions. cc: MD Adria Ambrocio MD Kirk L. Jackson, MD
[2018-10-06] MEDS: EXELON 13.3MG/24HRS TD SCH (10:50)
[2018-10-06] MEDS: ZYRTEC SCH (10:51)
[2018-10-06] MEDS: ZOLOFT GT SCH ×2 (10:51→20:57)
[2018-10-06] MEDS: NEURONTIN GT SCH ×2 (10:51→20:57)
[2018-10-06] MEDS: CULTURELLE PO SCH ×2 (10:57→20:57)
[2018-10-06] MEDS: IMODIUM GT SCH ×3 (10:58→20:57)
[2018-10-06] MEDS: PROTONIX IV SCH ×2 (10:58→22:29)
--- NOTE | 2018-10-06 11:03 | PROGRESS NOTE ---
DATE: 10/06/2018 SUBJECTIVE: The patient is feeling fine today. No complaints. The daughter is at bedside and reported that she is doing okay. OBJECTIVE: Vital Signs: Temperature 97.3 degrees, heart rate 86, respiratory rate 16, blood pressure 124/76, O2 saturation 99% on room air. General Examination: This is a chronically ill- looking, malnourished, 78-year-old, female lying in bed, in no acute distress. HEENT: Head is normocephalic and atraumatic. Mucous membranes are dry. Neck: No JVD noted. There is a small depression over the neck that looks like old surgery from an injury or cancer. No cervical lymphadenopathy noted. Cardiovascular Examination: S1 and S2 heard. No murmurs, gallops, or rubs. Regular rate and rhythm. Respiratory Examination: Coarse breath sounds are still present in both pulmonary bases with mild expiratory wheezing as well. The patient is not using any accessory muscles or having work of breathing. Abdomen: Soft, nontender to palpation. PEG tube in place with no erythema around it. No signs of peritoneal irritation. Extremities: Right edcpr-sht-itng amputation noted. Left lower extremity with mid calf covered by dressing, clean and dry. Neurological Examination: The patient is awake, oriented to time and person. Moves 4 extremities spontaneously. Hoarseness noted. Laboratory Data: White cell count 11.05, hemoglobin 10.1, hematocrit 32.2, platelets 604,000. Normal BMP. ASSESSMENT AND PLAN: 1. Profound multifactorial anemia. Hemoglobin is stable after we have transfused 2 units of blood. That have not been any signs of upper gastrointestinal bleeding. Gastroenterology has been consulted. Of course, they are not planning to do any procedure because this patient is a high risk for any possible procedures that we may need to perform. In any case, we agreed with the plan to continue to monitor this patient closely with a CBC daily. We will transfuse as needed. 2. Healthcare-associated pneumonia. Patient is on vancomycin, clindamycin, and Azactam. The blood cultures are negative. Urine culture shows gram-positive cocci. At this time, I am planning to continue with the same management. 3. Methicillin-resistant Staphylococcus aureus infection of the leg. At this point, we are going to provide wound care only. Not a surgical candidate according to Dr. Amaya. We will continue to monitor this patient closely. We will continue with the same antibiotic management. 4. Myasthenia gravis. We will continue the home medications. 5. Severe protein calorie malnutrition. Patient is receiving nasogastric tube feedings continuously at 35 mL per hour and no residuals at all. Of course, we will continue with the same management. 6. Advanced dementia. We will continue home medications. 7. Hypothyroidism. We will continue with Synthroid. 8. Disposition. At this point, I am planning to keep her in the hospital for at least 2 to 3 days to continue with vancomycin and then we are planning to send her back to her rehab facility. The daughter, who was at bedside, was informed about the plan and she agreed. cc: Adria Morales MD
[2018-10-06] MEDS: ALBUTEROL NEB INH PRN (15:32)
[2018-10-06] MEDS: VANCOMYCIN 1 GM/NS 1 GM/250 ML IVPB IV SCH (17:20)
[2018-10-06] MEDS: ATIVAN GT SCH (20:57)
[2018-10-06] MEDS: MELATONIN GT SCH (20:57)
[2018-10-06] MEDS: SODIUM CHLORIDE 0.9% INJ SCH (22:29)
[2018-10-07] MEDS: MESTINON PO SCH ×2 (04:15→11:09)
[2018-10-07] MEDS: CLINDAMYCIN 600 MG/D5W 600 MG/50 ML IVPB IV SCH ×2 (04:15→13:30)
[2018-10-07] MEDS: AZACTAM 1 GM in NS 50 ML IV SCH ×2 (04:15→12:30)
[2018-10-07] MEDS: SYNTHROID GT SCH (06:20)
[2018-10-07 07:25] LABS: BASO# 0.04 X1000 (0.0-0.2); BASO% 0.4 % (0.0-0.8); EOS# 0.45 X1000 (0.0-0.7); EOS% 4.8 % (0.0-10.0); HEMATOCRIT 32.1 % (37.0-47.0); HEMOGLOBIN 9.9 g/dL (12.0-16.0); IMM GRAN# 0.04 X1000 (0.0-0.04); IMM GRAN% 0.4 % (0.0-0.5); LYMPH# 1.63 X1000 (1.2-3.4); LYMPH% 17.5 % (20.5-51.1); MCHC 30.8 g/dL (33-37); MCV 87.5 FL (81-99); MONO# 0.55 X1000 (0.11-0.59); MONO% 5.9 % (1.7-9.3); MPV 10.1 FL (7.4-10.4); NEUT# 6.63 X1000 (1.4-6.5); PLT 587 X1000 (130-400); RBC 3.67 XMIL (4.2-5.4); WBC 9.34 X1000 (4.8-10.8)
[2018-10-07] MEDS: DUONEB (A & A) INH SCH (07:27)
[2018-10-07 07:41] LABS: AGAP 10; BUN 10 mg/dL (8-22); CALCIUM 7.9 mg/dL (8.8-10.2); CHLORIDE 103 mmol/L (98-107); COSMO 270; CREATININE 0.3 mg/dL (0.5-0.9); ESTIMATED GFR > 60; GLUCOSE 109 mg/dL (70-104); SODIUM 135 mmol/L (136-145); TCO2 22 mmol/L (25-35)
[2018-10-07 08:00] VITALS: BP 131/61
[2018-10-07] MEDS: EXELON 13.3MG/24HRS TD SCH (08:46)
[2018-10-07] MEDS: CULTURELLE PO SCH (08:47)
[2018-10-07] MEDS: IMODIUM GT SCH ×2 (08:47→15:13)
[2018-10-07] MEDS: ZOLOFT GT SCH (08:47)
[2018-10-07] MEDS: ZYRTEC SCH (08:47)
[2018-10-07] MEDS: NEURONTIN GT SCH (08:47)
[2018-10-07] MEDS: PROTONIX IV SCH (11:08)
[2018-10-07] MEDS: SODIUM CHLORIDE 0.9% INJ SCH (11:09)
[2018-10-07] MEDS: TYLENOL WITH CODEINE #3 PO PRN ×2 (11:37→15:13)
--- NOTE | 2018-10-07 11:52 | GASTROENTEROLOGY PROGRESS NOTE ---
DATE: 10/04/2018 SUBJECTIVE: The patient is more alert. No complaints. No pain. OBJECTIVE: Vital Signs: Temperature 98 degrees, heart rate is 86, respirations 18, blood pressure 150/67, O2 saturation 93% on 3 L. General: Chronically ill, 78-year-old lady laying in bed, in no acute distress. HEENT: Conjunctival pallor present. The patient had previous surgical scar. No lymphadenopathy. Heart: Normal. Lungs: Normal. Abdomen: Soft. PEG tube is in place, which is normal. No bleeding at the PEG site. Neurologic: The patient is weak and oriented. Lab Data: White count 15 thousand, hemoglobin 8.9, hematocrit 28. IMPRESSION: 1. Profound multifactorial anemia. Dr. Mujica has seen and, at this point, doing only supportive care. 2. Pneumonia. 3. Myasthenia gravis. 4. Protein calorie malnutrition. 5. Dementia. 6. Hypothyroidism. PLAN: Continue supportive care and transfuse if necessary. cc: Rakan Ruiz MD
--- NOTE | 2018-10-07 11:53 | GASTROENTEROLOGY PROGRESS NOTE ---
DATE: 10/05/2018 SUBJECTIVE: More alert. No complaints. OBJECTIVE: Vital Signs: Afebrile, heart rate 71, respiratory rate 19, blood pressure 130/70, O2 saturation 97%. HEENT: Marked conjunctival pallor. Neck: Supple. Trachea midline. Heart and Lungs: Normal. Abdomen: Soft, nontender. PEG tube in place. No bleeding. Neurological: Alert and oriented to person. IMPRESSION AND PLAN: 1. Profound anemia, stable. Hematocrit is stable around 29. 2. Pneumonia. 3. Myasthenia gravis. 4. Protein calorie malnutrition. 5. Hypothyroidism. 6. Gastrointestinal prophylaxis. -4 cc: Rakan Ruiz MD
--- NOTE | 2018-10-07 12:39 | DISCHARGE SUMMARY ---
ADMISSION DATE: 10/03/2018 DISCHARGE DATE: 10/07/2018 CONSULTATIONS: 1. Dr. Homar Mujica with Gastroenterology. 2. Dr. Otf Amaya with General Surgery. PERTINENT PROCEDURES: Chest, abdomen and pelvis CT with patchy infiltrates throughout both lungs indicating pneumonia, left mainstem bronchus mucous plugging, bilateral atelectasis that is worse on the left. Mediastinal hilar lymphadenopathy that appears to be at least slightly worse than previous study, distended gallbladder, as well as biliary and pancreatic ductal dilatation that appears more prominent than previously. Rectal fecal impaction. DISCHARGE DIAGNOSES: 1. Severe anemia. The patient has received 2 units of packed red blood cells. Hemoglobin and hematocrit is currently stable at 9.9 and 32. She is going to continue with conservative management with GI. She does not have any overt signs of bleeding. Her risk for any procedure is high secondary to her multiple medical comorbidity conditions and severe malnourished state. 2. Healthcare-associated pneumonia. She has been on IV antibiotics will be transitioned to p.o. clindamycin. 3. Myasthenia gravis aware. 4. Skin ulceration on left leg aware. 5. Dementia aware. 6. Severe protein calorie malnutrition. Patient receives tube feeds. She has been tolerating them well. 7. Anemia history. Aware. 8. Hypothyroidism. Continue Synthroid. HOSPITAL COURSE: Briefly, Ms. Lawrence is an 78-year-old female who is a resident of [facility]. She was sent to the ED related to a low hemoglobin and hematocrit. She has a past medical history of laryngeal cancer with dementia, hypothyroidism, myasthenia gravis, clinical depression, gout, and breast cancer. Her hemoglobin and hematocrit was repeated in the ED, and was found to be 3.7 and 14.1. The patient was also noted to recently have a G-tube placed. Her stool was occult positive. She was admitted for profound anemia and transfused with 2 units of blood. She was started on IV PPI. Consulted GI as well as General Surgery. She was also felt to have aspiration pneumonia versus a hospital-acquired pneumonia. She was initiated on broad-spectrum antibiotics IV fluids, and general surgery was asked to assess her leg wound. Their recommendation was to continue with Hydrogel gel and cover with petroleum gauze, and changed twice a day. She was treated conservatively for her profound anemia secondary to her fragile medical state. She does not have any signs of overt bleeding. Her hemoglobin and hematocrit has remained stable since 2 units of blood. She will be discharged back to [facility] today. VITAL SIGNS: Temperature is 98.3 degrees, heart rate 73, respirations 15, blood pressure 131/61, O2 is 97% on room air. DISCHARGE DIET: She has been getting Jevity 1.5 at 35 mL with 60 mL q.4 hours flush for nutrition. She is NPO. DISCHARGE MEDICATIONS: 1. Ativan 0.5 mg GT at bedtime. 2. DuoNeb 3 mL inhaled b.i.d. 3. Albuterol sulfate 2.5 g inhaled q.6 hours p.r.n. 4. Zyloprim 100 mg G tube daily. 5. Zyrtec 10 mg GT at bedtime. 6. Voltaren 1% gel 4 g topical b.i.d. 7. Neurontin 100 mg GT b.i.d. 8. Synthroid 150 mcg GT every morning. 9. Imodium AD 2 mg GT p.r.n. 10. Imodium 2 mg GT t.i.d. 11. Melatonin 5 mg GT at bedtime. 12. Calmoseptine 1 application topical at bedtime. 13. Mestinon 60 mg p.o. q.6 hours. 14. Exelon 13.3 mg per 24 hours 1 each GT daily. 15. Zoloft 25 mg GT daily. 16. Ultram 50 mg GT t.i.d. 17. Cleocin 300 mg GT q.6 hours for 40 caps. 18. Tylenol 650 mg p.o. q.4 to q.6 hours p.r.n. FOLLOW UP: Ms. Lawrence is being discharged back to [facility] where she will continue with wound care twice a day to her thigh. She will need to complete antibiotics secondary to wound infection as well as hospital-acquired pneumonia. She can return to the ED or call 911 for any worsening of symptoms. Dictated by ALEXANDRA Hood for Adria Morales MD Addendum: Patient is seen and examined by myself. Agree with ALEXANDRA note. It reflects my assessment and plan. Patient is being discharged in stable condition to rehab facility. Will be seen by primary care doctor in 2 to 3 weeks. cc: Adria Morales MD [facility]ENT[facility]
--- NOTE | 2018-10-07 13:59 | PROVIDER PROGRESS NOTE ---
Progress Note - - 10/07/2018 SUBJECTIVE: No acute overnight events. VSS. No N/V/F, CP, SOB, abdominal pain. She is tolerating TFs. No rectal bleeding or melena. OBJECTIVE: Last Vital Signs Temp 98.3 F 10/07/18 07:59 Pulse 73 10/07/18 07:59 Resp 15 10/07/18 07:27 BP 131/61 10/07/18 07:59 Pulse Ox 97 10/07/18 07:59 Height 4 ft 9 in Weight 77 lb 4.8 oz GEN: frail, thin, awake, alert, NAD HEENT: anicteric, EOMI, MMM NECK: no LAD/ no JVD CV: RRR, no murmurs PULM: CTAB anteriorly ABD: soft NT/ND, PEG c/d/i, NABS present EXT: thin, no cce NEURO: nonfocal LABS: 10/07/18 10/07/18 06:45 06:45 WBC 9.34 Hgb 9.9 L Plt Count 587 H Sodium 135 L Potassium 4.0 Chloride 103 Carbon Dioxide 22 L BUN 10 Creatinine 0.3 L Ms Lyndsay Lawrence is an 78-year-old woman with a history of laryngeal cancer, severe protein calorie malnutrition, who presented with new onset severe iron deficiency anemia without any obvious overt gastrointestinal bleeding currently. Hemoglobin has remained stable after 2 units of blood on presentation without overt GI bleeding. VSS. I explained to daughter, Leah, who is also her HPOA that diagnostic EGD and colonoscopy would be high anesthesia risk given her multiple medical problems and that even if we found an underlying malignancy, that she would not likely be a good candidate for therapies. The daughter expressed understanding and agreement with conservative management with trending her H/H periodically as outpatient and transfusing as needed. #NEFTALI: trend H/H every 2-3 months and transfuse prn to maintain hgb 7-8; iron replacement therapy #HCAP: on abx per primary team #MG: noted #Dementia: noted #Severe protein calorie malnutrition: on TFs #GI ppx: continue PPI Will sign off. Please call with questions or concerns
== END 2018-10-07 16:30 | DRG 811 ==
LOC: SUPCPDRO → ED 19:41 → SUATTDRO 10-03 00:26 → 4N 10-03 00:26 → 3N 10-04 16:00
PROVIDERS: ATTEND Internal Medicine
CPT/HCPCS: 36430; 71010; 71045; 71260; 74177; 80048; 80053; 80202; 81001; 82040; 82270; 82607; 82728; 82746; 82948; 83540; 83550; 83605; 83735; 83880; 84100; 84134; 84443; 84484; 85025; 86850; 86900; 86901; 86920; 87040; 87070; 87077; 87088; 87186; 94640; 94761; 96365; 96366; 96367; 96368; 96375; 97162; 97530; 99285; A9270; C9113; J2543; J3370; J7030; P9016; Q9967; S0073; S0164; XXXXX

== ENCOUNTER 2018-10-12 20:04 | Inpatient (IN) ==
--- NOTE | 2018-10-12 21:18 | Diag Imaging Result Doc PS360 ---
EXAM: CHEST-1 VIEW 10/12/2018 HISTORY: cough TECHNIQUE: AP portable at 2107 COMMENT: There are patchy coarse opacities bilaterally particularly in the lingula and left lower lobe which have been becoming progressively worse since 05/23/2018 and which have not changed appreciably since 10/02/2018. There has been some slight improvement in the left base since the previous study. IMPRESSION: Atelectasis and/or pneumonia in the right upper lobe. Patchy pneumonia in the lingula and left lower lobe. Some of this may be due to fibrosis. Electronically signed by Daniel Henry 10/12/2018 9:16 PM
[2018-10-12] MEDS ORDERED: NS 1,000 ML IV ONE (21:20)
[2018-10-12 22:02] LABS: BASO# 0.05 X1000 (0.0-0.2); BASO% 0.3 % (0.0-0.8); EOS# 0.24 X1000 (0.0-0.7); EOS% 1.5 % (0.0-10.0); HEMATOCRIT 27.7 % (37.0-47.0); HEMOGLOBIN 8.3 g/dL (12.0-16.0); IMM GRAN# 0.08 X1000 (0.0-0.04); IMM GRAN% 0.5 % (0.0-0.5); LYMPH# 2.75 X1000 (1.2-3.4); LYMPH% 17.5 % (20.5-51.1); MCH 26.9 PG (27-31); MCV 89.6 FL (81-99); MONO# 0.22 X1000 (0.11-0.59); MONO% 1.4 % (1.7-9.3); MPV 10.2 FL (7.4-10.4); NEUT# 12.36 X1000 (1.4-6.5); NEUT% 78.8 % (42.2-75.2); PLT 636 X1000 (130-400); RBC 3.09 XMIL (4.2-5.4); RDW 18.8 % (11.5-14.5)
[2018-10-12 22:24] LABS: INR 1.21; PROTIME 16.3 Seconds (11.0-16.0)
[2018-10-12 22:30] LABS: AGAP 17; ALB/GLOB RATIO 0.9; ALBUMIN 2.7 g/dL (3.5-5.0); ALKALINE PHOSPHATASE 74 U/L (32-104); BUN 36 mg/dL (8-22); CALCIUM 8.2 mg/dL (8.8-10.2); CHLORIDE 98 mmol/L (98-107); CK PROFILE 93 U/L (24-173); COSMO 286; CREATININE 0.6 mg/dL (0.5-0.9); ESTIMATED GFR > 60; GLUCOSE 167 mg/dL (70-104); GOT 27 U/L (10-30); GPT 12 U/L (10-36); POTASSIUM 4.3 mmol/L (3.5-5.1); SODIUM 137 mmol/L (136-145); TCO2 22 mmol/L (25-35); TOTAL BILIRUBIN 0.28 mg/dL (0.20-1.00); TOTAL PROTEIN 5.8 g/dL (6.3-8.3)
[2018-10-12] MEDS ORDERED: PROTONIX 80 MG in NS 80 ML IV ONE (23:44)
[2018-10-12] MEDS ORDERED: VANCOMYCIN 1 GM/NS 1 GM/250 ML IVPB IV ONE (23:46)
[2018-10-13] MEDS ORDERED: VANCOMYCIN IV PER PHARMACY MISC SCH (00:45)
[2018-10-13] MEDS: PROTONIX 80 MG in NS 80 ML IV SCH ×3 (01:10→22:39)
[2018-10-13] MEDS ORDERED: ZOFRAN IV PRN (01:28)
--- NOTE | 2018-10-13 01:33 | PROVIDER DOCUMENTATION ---
This chart was entered by April Joseph Scribe, acting as scribe for Clifton Sharma MD. HPI-General Adult - General Chief Complaint: Possible Sepsis-D Stated Complaint: spittng up blood Time Seen by Provider: 10/12/18 21:04 Source: family Allergies/Adverse Reactions: Patient Allergies Allergy/AdvReac Type Severity Reaction Status Date / Time Penicillins Allergy Mild HIVES Verified 10/12/18 20:58 Sulfa (Sulfonamide Allergy Mild RASH Verified 10/12/18 20:58 Antibiotics) metronidazole [From Flagyl] Allergy Unknown Verified 10/12/18 20:58 Home Medications: Home Medication List Medication Instructions Recorded Confirmed Last Taken Type Levothyroxine [Synthroid] 150 microgm GT QHS 06/02/13 10/12/18 02/18/16 06:00 History Allopurinol [Zyloprim] 100 mg GT DAILY 10/16/13 10/12/18 02/17/16 09:00 History Albuterol 2.5MG/Ipratrop 0.5MG 3 ml INH BID 03/05/18 10/12/18 Unknown History [Duoneb (A & A)] Cetirizine HCl [Zyrtec] 10 mg GT HS 03/05/18 10/12/18 Unknown History Rivastigmine [Exelon 13.3MG/24Hrs] 1 patch TD DAILY 03/05/18 10/12/18 Unknown History Sertraline HCl 25 mg GT DAILY 03/05/18 10/12/18 Unknown History Albuterol Sulfate 2.5 mg IH Q6H PRN PRN 10/02/18 10/12/18 Unknown History Diclofenac 1% Gel [Voltaren 1% Gel] 4 gm TOP BID 10/02/18 10/12/18 Unknown History Gabapentin [Neurontin] 100 mg GT BID 10/02/18 10/12/18 Unknown History Loperamide HCl [Imodium A-D] 2 mg GT PRN PRN 10/02/18 10/12/18 Unknown History Loperamide HCl [Imodium A-D] 2 mg GT TID 10/02/18 10/12/18 Unknown History Lorazepam [Ativan] 0.5 mg GT QHS 10/02/18 10/12/18 Unknown History Melatonin 5 mg GT HS 10/02/18 10/12/18 Unknown History Menthol/Zinc Oxide Ointment 1 applicatn TOP BID 10/02/18 10/12/18 Unknown Histo ry [Calmoseptine Ointment] Pyridostigmine [Mestinon] 60 mg PO Q6H 10/02/18 10/12/18 Unknown History Tramadol [Ultram] 50 mg GT TID 10/02/18 10/12/18 Unknown History Clindamycin [Cleocin] 300 mg GT Q6HR #40 cap 10/07/18 10/12/18 Unknown Rx Acetaminophen [Tylenol] 650 mg PO Q4H PRN PRN 10/12/18 10/12/18 Unknown History - History of Present Illness -Gen Adult Nature of Presenting Problems: 78 yof presents w/family to ed w/co 1930 started vomiting up blood at least 5 cup . pt also hypotensive. pt is a resident at [facility]. pt family states pt was in hospital last week for anemia and pneumonia and received 2 pints of blood. pt has peg tube and BKA rt leg. pt had a tracheostomy 3 yrs ago. Review of Systems - Adult - REVIEW OF SYSTEMS - ADULT ROS:: ROS per family Constitutional: reports: no symptoms reported Eyes: reports: no symptoms reported Ears, Nose, Mouth & Throat: reports: no symptoms reported Cardiovascular: reports: no symptoms reported Respiratory: reports: shortness of breath. denies: cough, pleurisy, wheezing Gastrointestinal: reports: see HPI, hematemesis. denies: diarrhea, nausea, vomiting Genitourinary: reports: no symptoms reported Musculoskeletal: reports: other (right BKA chronic; bedbound) Integumentary: reports: skin sores/ulcer (behind left leg) Neurological: reports: other (bedbound) Endocrine: reports: no symptoms reported Hematologic/Lymphatic: reports: no symptoms reported Allergic/Immunologic: reports: no symptoms reported All Other Systems: Reviewed and Negative Past History - Adult - PAST MEDICAL HISTORY-ADULT Review of Records: reports: Old Records Reviewed Major Childhood Illnesses: reports: denies history Cardiovascular: reports: HTN, hyperlipidemia Respiratory: reports: other (throat cancer) Gastrointestinal: reports: denies history Obstetrical/Gynecological: reports: other (breast cancer) Genitourinary: reports: denies history Musculoskeletal: reports: other (gout) Neurological: reports: dementia Endocrine/Immune: reports: Diabetes, thyroid disorder Other Conditions: reports: other cancer (throat), other - PRIOR SURGERIES/PROCEDURES Surgical/Procedure History: reports: hysterectomy, orthopedic (extremity) (BKA rt), back/neck, other - PRIOR HOSPITALIZATIONS Prior Hospitalizations: reports: for other non-related - IMMUNIZATION STATUS Childhood Immunizations: See Nurse Assessment Flu Vaccine: See Nurse Assessment - FAMILY HISTORY Family History: reviewed, not pertinent - SOCIAL HISTORY Smoking: other (former) Substance Use: none/never Physical Exam-General - PHYSICAL EXAM-ADULT Initial Vital Signs Reviewed: Yes - CONSTITUTIONAL General Appearance: severe distress, thin, other (bedbound). negative: obese, obtunded, combative - EYES Eyes: PERRL/EOMI, pale conjunctivae - HEAD, EARS, NOSE, MOUTH & THROAT HENMT: normocephalic/atraumatic, other (prior tracheostomy site open in anterior neck) - NECK Neck: limited range of motion - RESPIRATORY Respiratory: respiratory distress, rales - CARDIOVASCULAR Cardiovascular: tachycardia - GASTROINTESTINAL (ABDOMEN) Abdominal Exam: normal bowel sounds, other (peg tube) - MUSCULOSKELETAL Extremity: other (spasticity in all 4 extremities; right BKA). negative: erythema, inflammation - SKIN Integumentary: pallor, other (stage 3 ulcer , small , in left popliteal fossa) - NEUROLOGIC Neurologic: other (awake, responds to questioning; very poor historian; bedbound) - PSYCHIATRIC Psych/Mental Status: disoriented x 3 Progress - PLAN OF CARE/RESULTS Progress/Plan/Lab Results: Vital Signs - 8 hr 10/12/18 20:36 Temperature 96.6 F L Pulse Rate 77 Respiratory Rate 28 H Blood Pressure 74/48 O2 Sat by Pulse Oximetry 96 Orders Category Date Time Status Cardiac Monitoring DIRECTED Care 10/12/18 20:58 Active IV Insertion ORDERED Care 10/12/18 20:58 Active Notify MD of + Sepsis Screen NOW Care 10/12/18 20:58 Active CHEST-1 VIEW [RAD] Stat Exams 10/12/18 20:58 Completed BLOOD CULTURE [BLDCUL] Stat Lab 10/12/18 20:30 Ordered CBC WITH DIFF [HEME] Stat Lab 10/12/18 20:58 Ordered CK PROFILE [SP CHEM] Stat Lab 10/12/18 20:58 Ordered COMPREHENSIVE METABOLIC PANEL [CHEM] Stat Lab 10/12/18 20:58 Ordered LACTATE, PLASMA [CHEM] Lab 10/13/18 00:00 Uncollected LACTATE, PLASMA [CHEM] Lab 10/13/18 03:00 Uncollected LACTATE, PLASMA [CHEM] Q3H Lab 10/12/18 21:00 Ordered PROTIME WITH INR [COAG] Stat Lab 10/12/18 20:58 Ordered PTT [COAG] Stat Lab 10/12/18 20:58 Ordered TROPONIN T Stat Lab 10/12/18 20:58 Ordered TYPE & SCREEN [BBK] Stat Lab 10/12/18 21:21 Uncollected URINALYSIS W/POSS RFLX CULT [URINALYSIS] Stat Lab 10/12/18 20:58 Uncollected 0.9% Sodium Chloride Inj [Ns] 1,000 ml Med 10/12/18 21:20 Active IV 999 mls/hr Oxygen Device Stat Oth 10/12/18 20:58 Active Result Diagrams: 10/12/18 21:40 10/12/18 21:40 - REASSESSMENT Reassessment #1 Time Reassessed: 23:45 Status: other (patient has been started on blood transfusion after femoral line secured; pantroprazole IV drip as well; empiric antibiotics to be added regimen) - XRAY 1 XRAY: Bilateral XRAY Study: Chest (EXAM: CHEST-1 VIEW 10/12/2018 HISTORY: cough TECHNIQUE: AP portable at 2107 COMMENT: There are patchy coarse opacities bilaterally particularly in the lingula and left lower lobe which have been becoming progressively worse since 05/23/2018 and which have not changed appreciably since 10/02/2018. There has been some slight improvement in the left base since the previous study. IMPRESSION: Atelectasis and/or pneumonia in the right upper lobe. Patchy pneumonia in the lingula and left lower lobe. Some of this may be due to fibrosis. Electronically signed by Daniel Henry 10/12/2018 9:16 PM) Impression: Abnormal - CONSULTS/PCP/HOSPITALIST Notification #1 *Consult/PCP/Hospitalist*: Dr. Bobby Time Discussed: 23:45 Consult Disposition: Admit #2 Consult: Dr. Saldana Time Discussed: 00:30 Consult Disposition: Admit Procedures - CENTRAL LINE Consent Form Signed?: Yes Time-Out Verification Completed?: Yes Central Line Lumen: triple Central Line Procedure Prep: Hand Hygeine Performed, Kit Utilized, Chloraprep, Betadine Patient Position (To prevent Air Embolism): Supine (Femoral) Central Line Position: femoral (R) Ultrasound Guided?: Yes Hat, mask, sterile gown, & sterile gloves worn by physician?: Yes Site scrubbed vigorously for 30 seconds? (Groin: 2 min): Yes Post Procedure: Sutured in place, Sterile field maintained, BioPatch placed, Blood aspirated from each lumen (except from 1 port) Complications: none Departure - Departure Date of Disposition Decision: 10/13/18 Time of Disposition Decision: 23:46 DIAGNOSIS: Acute GI bleeding, Shock, Acute blood loss anemia Pneumonia Qualifiers: Pneumonia type: due to unspecified organism Laterality: unspecified laterality Lung location: unspecified part of lung Qualified Code(s): J18.9 - Pneumonia, unspecified organism Disposition: ADMITTED INPATIENT 09 Certified Medical Emergency: Emergent Condition: Critical - Critical Care Note This patient required my direct & personal management of CC.: Yes Total Time (mins): 123 Critical Care Statement: This patient required my direct personal management to treat or rule out processes, the absence of which, could potentiallly result in sudden, clinically significant life or limb threatening deterioration. Attestation - Physician/ MARCE Attestation The physician spent face to face time with patient:: Yes Advanced Practice Provider documentation review:: Supervising physician onsite and consulted in the evaluation and care of this patient. The physician did have a face to face encounter with the patient. This chart was documented by the indicated scribe, (April Joseph Scribe) and accurately reflects the services I performed and decisions made by me, Clifton Sharma MD, as attested by the provider's signature.
[2018-10-13] MEDS ORDERED: VANCOMYCIN 1 GM/NS 1 GM/250 ML IVPB IV ONE (02:00)
[2018-10-13] MEDS: AZACTAM 1 GM in NS 50 ML IV SCH ×3 (03:12→17:58)
[2018-10-13] MEDS: MESTINON PO SCH ×4 (03:14→20:12)
[2018-10-13] MEDS: NS 1,000 ML IV SCH ×2 (03:15→17:59)
[2018-10-13 03:21] LABS: URINE SOURCE CATH
[2018-10-13 03:25] LABS: BILIRUBIN URINE NEGATIVE (NEGATIVE); BLOOD URINE NEGATIVE (NEGATIVE); COLOR YELLOW; GLUCOSE URINE NEGATIVE (NEGATIVE); KETONE URINE NEGATIVE (NEGATIVE); LEUKOCYTES URINE NEGATIVE (NEGATIVE); NITRITE URINE NEGATIVE (NEGATIVE); PH URINE 6.5; PROTEIN URINE NEGATIVE (NEGATIVE); TURBIDITY URINE CLEAR (CLEAR); UR EPITHELIAL CELLS <10 /HPF (<10); URINE BACTERIA NEGATIVE /HPF; URINE RBC <10 /HPF (<10); URINE WBC <10 /HPF (<10); UROBILINOGEN URINE NORMAL (NORMAL)
[2018-10-13] MEDS: DUONEB (A & A) INH SCH ×5 (04:33→19:30)
--- NOTE | 2018-10-13 05:51 | HISTORY AND PHYSICAL ---
PRIMARY CARE PHYSICIAN: Dr. Robbin Song. CHIEF COMPLAINT: Vomiting blood. HISTORY OF PRESENT ILLNESS: This is a chronically ill-looking 78-year-old female who was recently diagnosed from the hospital on 6 days ago to [facility]. Apparently today around 7:30 p.m. she started vomiting blood at least 5 cups. Apparently the patient also was found to be hypotensive after she vomited blood. The patient is a permanent resident at [facility]. Because of that reason the patient was brought to the emergency department. The patient was recently discharged from the hospital 6 days ago for pneumonia and GI bleeding. At that time the patient did not have any signs of overt GI bleeding. Her hemoglobin at that time was 3.8. She received so far 2 units of blood and she was stable since then. Also we found out healthcare-associated pneumonia, the patient was discharged with clindamycin. The patient also has a history of DKA in the right leg, and also in the left leg back. The patient had a tracheostomy 3 years ago because of laryngeal cancer. PAST MEDICAL HISTORY: 1. History of laryngeal cancer with tracheostomy 3 years ago. 2. Healthcare-associated pneumonia diagnosed a week ago, she was in the hospital for that condition. 3. Hypothyroidism. 4. Gout. 5. Advanced dementia. 6. The patient has a PEG tube placed. 7. Severe malnutrition. 8. Myasthenia gravis. PAST SURGICAL HISTORY: 1. Right ggsgs-xvc-jisz amputation. 2. Stage III ulcer on the left leg. 3. Tracheostomy placement 3 years ago because of laryngeal cancer. 4. Total hysterectomy. 5. C-spine surgery. SOCIAL HISTORY: She is a permanent resident: [facility]. Apparently, she stopped smoking 15 years ago. No alcohol or illicit drugs reported number next allergies patient is allergic to penicillin. Sulfa and Flagyl number next review of systems is not possible to obtain it accurately because of the clinical situation of the patient. PHYSICAL EXAMINATION: GENERAL: This is a chronically ill-appearing and severely malnourished 78-year-old female lying in bed in no acute distress. HEENT: Head is normocephalic, atraumatic. Mucous membranes are very dry. Pupils are equal, round, and reactive to light and accommodation. Anicteric sclerae and pale conjunctivae. NECK: There is a hole in the neck from a prior surgery. No lymphadenopathy noted. No thyromegaly. CARDIOVASCULAR: S1, S2 heard. Tachycardic. No murmurs, gallops, or rubs noted. RESPIRATORY: Coarse breath sounds present in both pulmonary boswell along with expiratory wheezing. The patient is not using any accessory muscles or having work of breathing. ABDOMEN: Soft, a little bit distended, but nontender to palpation. PEG tube in place. No erythema around it. Bowel sounds present. No organomegaly. EXTREMITIES: Right dfcfm-hwd-kswe amputation noted. Left lower extremity in the mid calf there is a lesion with breakdown. No purulent drainage noted. NEUROLOGICAL: The patient is awake and oriented to person only. Follows commands. LABORATORY DATA: White cell count 15.7, hemoglobin 8.3, hematocrit 27.7, platelets 636,000. BMP unremarkable. Lactate 3.6. ASSESSMENT AND PLAN: 1. Gastrointestinal bleeding. That is the reason why this patient was transferred from [facility] to the hospital. As we mentioned before the patient was admitted a couple of weeks ago for the same diagnosis. At that time the patient was evaluated by Gastroenterology and of course the patient was deemed not a candidate for any procedure considering her high risk. They recommended medical management only. At this time I think the situation has not changed, I think she is still high risk for any procedure including endoscopy and colonoscopy. In any case, I prefer to consult Gastroenterology and missael, Dr. Saurabh Saldana and we will see what he has to say. In the meantime 2 units of blood has been ordered. We are going to check hemoglobin and hematocrit every 6 hours x4. We will check a complete blood count in the morning as well. Hemodynamically stable, but I prefer to send this patient to the intensive care unit. 2. Healthcare-associated pneumonia. The patient is on vancomycin and Azactam. We will consult Dr. Eller for further management. 3. Severe malnutrition. We are going to continue with PEG tube feedings. 4. Myasthenia gravis. Aware. We will continue home medications. 5. Advanced dementia. We will continue home medications. 6. Code status. I have talked with daughter and she confirmed again in this hospitalization that this patient is DO NOT RESUSCITATE level 1. 7. Disposition. We are going to send this patient to the intensive care unit for better monitoring. cc: Adria Morales MD
[2018-10-13 06:47] LABS: BASO# 0.04 X1000 (0.0-0.2); BASO% 0.1 % (0.0-0.8); EOS# 0.09 X1000 (0.0-0.7); EOS% 0.2 % (0.0-10.0); HEMATOCRIT 39.1 % (37.0-47.0); HEMOGLOBIN 12.8 g/dL (12.0-16.0); IMM GRAN# 0.18 X1000 (0.0-0.04); IMM GRAN% 0.4 % (0.0-0.5); LYMPH# 0.53 X1000 (1.2-3.4); LYMPH% 1.3 % (20.5-51.1); MCH 29.2 PG (27-31); MCHC 32.7 g/dL (33-37); MCV 89.1 FL (81-99); MONO# 1.22 X1000 (0.11-0.59); MONO% 2.9 % (1.7-9.3); NEUT% 95.1 % (42.2-75.2); PLT 472 X1000 (130-400); RBC 4.39 XMIL (4.2-5.4); RDW 15.9 % (11.5-14.5); WBC 42.26 X1000 (4.8-10.8)
[2018-10-13 07:14] LABS: AGAP 14; BUN 34 mg/dL (8-22); CALCIUM 8.5 mg/dL (8.8-10.2); CHLORIDE 105 mmol/L (98-107); COSMO 289; CREATININE 0.5 mg/dL (0.5-0.9); ESTIMATED GFR > 60; GLUCOSE 128 mg/dL (70-104); POTASSIUM 4.2 mmol/L (3.5-5.1); SODIUM 140 mmol/L (136-145); TCO2 21 mmol/L (25-35)
--- NOTE | 2018-10-13 07:50 | Diag Imaging Result Doc PS360 ---
EXAM: CHEST-PORTABLE INDICATION: ng tube placement TECHNIQUE: One view COMPARISON: 10/12/2018 FINDINGS: There is a newly placed NG tube. The tip projects below the diaphragm and is assumed to be in the lumen of the stomach in expected position. The lungs are overexposed due to focus on the NG tube. IMPRESSION: Interval placement of NG tube in expected position as described. Electronically signed by Jesus Joseph 10/13/2018 7:47 AM
[2018-10-13] MEDS: EXELON 13.3MG/24HRS TD SCH (08:26)
[2018-10-13] MEDS ORDERED: BLISTEX MEDICATED BERRY LIP BALM TOP PRN (08:33)
[2018-10-13] MEDS ORDERED: ZOLOFT GT SCH (09:00)
[2018-10-13] MEDS: ZYLOPRIM GT SCH (09:22)
[2018-10-13] MEDS: NEURONTIN GT SCH ×2 (09:22→20:12)
[2018-10-13] MEDS: CALMOSEPTINE OINTMENT TOP SCH ×2 (09:23→20:12)
[2018-10-13 09:48] LABS: BANDS 14 % (0-1); LYMPHS 2 % (21-51); MONO 2 % (1-9); SEGS 82 % (42-75)
[2018-10-13 09:50] LABS: HEMATOCRIT 35.7 % (37.0-47.0); HEMOGLOBIN 11.8 g/dL (12.0-16.0)
--- NOTE | 2018-10-13 11:38 | GASTROENTEROLOGY CONSULTATION ---
DATE: 10/13/2018 REQUESTING PHYSICIAN: Dr. Herrera PRIMARY CARE DOCTOR: Robbin Song MD REASON FOR CONSULTATION: Hematemesis. HISTORY OF PRESENT ILLNESS: Ms. Lawrence is an 78-year-old female who was admitted early this morning for vomiting blood. She was recently in the hospital 10 days ago for anemia. She was transfused at that time. The patient this time has vomited blood. NG tube was inserted which has suctioned out about 400 mL of bloody aspirate. She has NG tube in place, but this morning they have suctioned only about 50 mL of bloody aspirate. She has a PEG tube in place. She has received 2 units of blood transfusion. Her blood counts have improved appropriately. The patient is a longterm resident and she has a history off dementia and multiple comorbid medical conditions. All history obtained from the records and the nursing staff and the primary care notes and from past records. The patient is currently being observed in the ICU. Initially, we wanted to do the EGD today but the patient is being resuscitated, and she has worsening leukocytosis with a white count 42,000. PAST MEDICAL HISTORY: 1. History of laryngeal cancer with tracheostomy 3 years ago. 2. Health care associated pneumonia a week ago. 3. Hypothyroidism. 4. Gout. 5. Advanced dementia. 6. Malnutrition. 7. Myasthenia gravis. 8. Anemia requiring blood transfusion almost a weeks ago. 9. History of peripheral arterial disease requiring leg amputation on the right side. PAST SURGICAL HISTORY: 1. Right mgyjj-fux-ooix amputation. 2. Stage III ulcer on the left leg. 3. Tracheostomy placement 3 years ago because of laryngeal cancer 4. Total hysterectomy. 5. C-spine surgery. 6. PEG tube placement. SOCIAL HISTORY: She is a longterm resident at [facility]. She quit smoking 15 years ago. No alcohol or illicit drug abuse reported. ALLERGIES: 1. Penicillin. 2. Sulfa. 3. Flagyl. REVIEW OF SYSTEMS: Could not be obtained as the patient had dementia and answers only a few questions. She denied any abdominal pain. PHYSICAL EXAMINATION: Vital Signs: Temperature of 97.5, pulse rate 107, respiratory rate 26, blood pressure 130/71, saturating 94% on 5 L nasal cannula. General Appearance: Ms. Lawrence is thinly built, lying in bed, in no acute distress. HEENT: Positive NG tube. Mild pallor. No icterus. Neck: Supple. Abdomen: Emaciated. PEG tube in place. There was some redness around the external bumper but no drainage noted. No guarding or rebound. Extremities: Right below- knee amputation noted. Neurologic: She is awake and answers a few questions. She has history of baseline dementia. MEDICATIONS IN THE HOSPITAL: Include 1. Synthroid 2. Ativan 3. Tylenol 4. Albuterol/ipratropium 5. Allopurinol 6. Aztreonam 7. Dimethyl/oxybenzone topical 8. Neurontin 9. Melatonin 10. Menthol/zinc oxide ointment. 11. Normal saline 30 mL per hour 12. Zofran 4 mg IV every 4 hours 13. Vancomycin, pharmacy dosing 14. Protonix drip 15. Mestinon 16. Rivastigmine 17. Zoloft. 18. Vancomycin. 19. Normal saline. She is currently NPO. LABORATORY DATA: Her hemoglobin and hematocrit is 11.8 and 35.7, white count of 42.2, platelet count of 472,000, MCV of 89.1. INR 1.1, PT of 16.3, PTT of 58. Sodium 140, potassium 4.2, chloride 105, bicarb 21, anion gap 14, BUN of 34, creatinine 0.5, glucose of 120, calcium 8.5, AST 27, ALT 12, alkaline phosphatase 97, total protein is 5.8, albumin 2.7, lactate of 2.5. Urinalysis clear. Blood cultures have been drawn. Sputum cultures drawn, they are currently pending. Chest x-ray was done which showed interval placement of NG tube in expected position and the other chest x-ray showed atelectasis or pneumonia in the right upper lobe, patchy pneumonia in the lingula and left lower lobe. Some of this may be due to fibrosis. Last other significant imaging was abdominal CT done on 01/02/2018, which showed high dense material in the lumen of the gallbladder likely representing stones or sludge, advanced degenerative arthropathy throughout the lumbar spine, and extensive aortoiliac atherosclerotic calcification. IMPRESSION AND PLAN: 1. Gastrointestinal bleed. 2. Anemia. 3. Malnourishment and emaciated state. 4. History of laryngeal cancer. 5. New health care associated pneumonia on x-ray and leukocytosis. 6. Myasthenia gravis. RECOMMENDATIONS: We need to resuscitate the patient. We will keep the NG tube to intermittent suction. We will give IV fluids. We will continue on Protonix drip. Will transfuse as needed. We will continue broad-spectrum antibiotics. She is being belle cultured. We will schedule for EGD tomorrow under anesthesia. We will need to obtain consent from the family. Discussed above plans with the patient's nurse at bedside. All questions answered. Please call us with any questions. Will follow closely. cc: MD Dr. Javier Ambrocio MD [facility]
[2018-10-13 12:20] LABS: BASO# 0.03 X1000 (0.0-0.2); BASO% 0.1 % (0.0-0.8); EOS# 0.01 X1000 (0.0-0.7); HEMATOCRIT 32.7 % (37.0-47.0); HEMOGLOBIN 10.8 g/dL (12.0-16.0); IMM GRAN# 0.21 X1000 (0.0-0.04); IMM GRAN% 0.5 % (0.0-0.5); LYMPH# 0.72 X1000 (1.2-3.4); LYMPH% 1.8 % (20.5-51.1); MCH 29.3 PG (27-31); MCV 88.6 FL (81-99); MONO# 1.26 X1000 (0.11-0.59); MONO% 3.1 % (1.7-9.3); NEUT# 38.69 X1000 (1.4-6.5); NEUT% 94.5 % (42.2-75.2); PLT 420 X1000 (130-400); RBC 3.69 XMIL (4.2-5.4); RDW 15.6 % (11.5-14.5); WBC 40.92 X1000 (4.8-10.8)
--- NOTE | 2018-10-13 13:39 | INFECTIOUS DISEASE CONSULT REP ---
DATE: 10/13/2018 The patient is unable provide a history. No family members present. The information I obtained on this patient was from reviewing data in the computer. The patient's white blood cell count did increase dramatically from 15,700 yesterday to 40,920 today. I think it is still reasonable to continue with vancomycin and aztreonam seeing as how the patient only has had 1 dose of each antibiotic. CONCLUSION: Patient is admitted to the hospital because of GI bleeding. She is found to have on chest x-ray a bilateral pneumonia. RECOMMENDATIONS: I agree with treating the patient with vancomycin and aztreonam pending culture results. DISCUSSION: The patient recently was hospitalized at [facility]. She was discharged approximately 6-7 days for pneumonia and GI bleeding. She lives at [facility] and she started vomiting blood there and the patient was brought back to the hospital. The patient's CBC today shows an increase in the white count to 40,920, hemoglobin 10.8 and platelet count 420,000. Creatinine is 0.5. GFR is greater than 60. Urinalysis showed no white cells or bacteria. Blood and sputum cultures are pending. Chest x-ray shows a bilateral pneumonia. PAST MEDICAL HISTORY: Positive for laryngeal cancer. The patient has a tracheostomy that has been present for 3 years. The patient has had pneumonia during her last admission to the hospital before this one. The patient also has hypothyroidism, gout, advanced dementia, a PEG tube in her abdomen, severe malnutrition and myasthenia gravis. The patient has a stage III ulcer on the left leg behind the knee. Hypothyroidism. PAST SURGICAL HISTORY: Patient has had a right ykwkr-lkg-vbut amputation. She has had a tracheostomy performed approximately 3 years ago. She has had a hysterectomy and C-spine surgery. She has also had placement of a PEG tube. SOCIAL HISTORY: The patient lives in [facility] She stopped smoking cigarettes 15 years ago. She does not drink alcoholic beverages or use illicit drugs. ALLERGIES: Her listed allergies are penicillin manifested by hives and sulfa and metronidazole manifested by rash for sulfa and an unknown allergy for Flagyl. REVIEW OF SYSTEMS: Is not possible. MEDICATIONS: Taken at home are albuterol inhaler, allopurinol, Zyrtec, Cleocin, diclofenac, gabapentin, Synthroid, loperamide, Ativan, melatonin, Mestinon, Exelon, sertraline and tramadol. PHYSICAL EXAMINATION: Vital Signs: Temperature is 98.8 degrees pulse 105, respirations 21, blood pressure is 135/86. Patient is 5 feet 2 inches tall, weighs 66 pounds. General: This is a chronically ill and malnourished-appearing, elderly female. She is in no acute distress. Head/eyes/ears/nose/throat: No drainage noted from the nose or ears. I could not visualize her mouth well. Neck: Patient has a permanent tracheostomy in place. Lungs: The patient had rhonchi on the left side and the breath sounds were clear on the right side. Extremities: Patient has a right mklfb-zxk-xvlb amputation. On the left leg, there is an ulcerated area behind the knee. Neurologic: The patient's eyes are open. She did not respond to verbal stimuli. There was no tremor. Integument: No rash. Abdomen: PEG in place, no tenderness. COMORBIDITIES: She is elderly. She appears malnourished. She has a permanent tracheostomy which could facilitate aspiration. Thank you for the consult. cc: Mihai Eller MD MTDD
--- NOTE | 2018-10-13 14:33 | PROGRESS NOTE ---
DATE: 10/13/2018 INTERVAL HISTORY: Ms. Lawrence was admitted for upper gastrointestinal bleed overnight. No other acute events. SUBJECTIVE: Ms Lawrence was drowsy, however, she was arousable and following my simple commands. Her niece and daughter are at bedside. Plan of care are discussed with her. They are surrogate decision maker. All of their questions have been answered satisfactorily currently. OBJECTIVE: Vitals reveal temperature of 97.5 degrees, pulse of 107 per minute, respiratory rate 26 per minute, blood pressure 130/75, and saturating 94% on 4 to 5 L nasal cannula. PHYSICAL EXAMINATION: The patient appears in mild distress. She has mild shortness of breath. She is using abdominal muscles. Pupils equal reacting to light. Oral cavity has secretions. She also had what appears to be crusting of her right ear. She had a tracheostomy in her neck with visualization which is difficult considering patient has flexion neck deformity. However, it does have greenish and brownish secretions oozing. I requested nurse to perform suction of that and send it to the lab.Cardiovascular: S1, S2 normal. Intermittent, tachycardic. No murmur, rub, or gallop. Lungs: Air entry bilaterally equal. She has crackles bilateral inframammary region. Abdomen: She has a PEG tube. The site appears noninflamed. Hypoactive bowel sounds. However, it is hard to appreciate since her breath sounds are also transmitted. She has left- sided groin central venous catheter and a urine catheter. Extremities: She has a right below- knee amputation. She has mild edema affecting left foot. She also had a pressure ulcer affecting left posterior calf. Input and output, she has 8.2 L of urine. LABORATORY: Suggestive of leukocytosis of 40,000, hemoglobin of 11, hematocrit of 35, and her platelet count is 472,000. Microbiology sputum culture is pending. IMAGING: Chest x-ray suggestive of atelectasis and pneumonia in the right upper lobe. Pneumonia in the lingula and left lower lobe. ASSESSMENT AND PLAN: 1. Acute hypoxic respiratory failure in the setting of left hemithorax pneumonia with prior history of tracheostomy. I will continue her on intravenous vancomycin and intravenous aztreonam. Infectious Disease has been consulted. I will follow up with tracheostomy secretions. Sputum culture as well as blood culture results. Continue oxygenation to maintain saturation more than 94%. The patient previously had a tracheostomy. However, she is do not intubate status now. 2. Upper gastrointestinal bleed status post NG tube and 2 units of packed red blood cells. NG tube has been clamped according to GI recommendation. Continue patient on intravenous pantoprazole drip. Follow up with frequent CBC and transfuse to maintain hemoglobin more than 8. Considering her multiple comorbidities, tracheostomy and DNR status, she is very high risk for endoscopy. I will appreciate GI recommendation if she would need endoscopy. She does have a PEG tube . 3. Severe protein energy malnutrition. Hold PEG tube feeding for now since she has upper GI bleed. 4. Myasthenia gravis. Continue home pyridostigmine. 5. Advanced dementia. Continue home rivastigmine. 6. Others. Continue home levothyroxine for hypothyroidism, lorazepam for anxiety, which I may hold depending on her respiratory status, and sertraline which I may hold. DISPOSITION: The patient's condition remains critical. More than 30 minutes of critical care time was spent in taking care of this patient. She remains in ICU. Plan of care discussed with the patient and daughter, and niece who are surrogate decision-makers. All of their questions have been answered. cc: Aldo Herrera MD
[2018-10-13 14:42] LABS: HEMATOCRIT 37.3 % (37.0-47.0); HEMOGLOBIN 11.9 g/dL (12.0-16.0)
[2018-10-13] MEDS ORDERED: NS 1,000 ML IV ONE ×2 (18:26→19:00)
[2018-10-13 18:39] LABS: BASO# 0.02 X1000 (0.0-0.2); HEMATOCRIT 26.2 % (37.0-47.0); HEMOGLOBIN 8.5 g/dL (12.0-16.0); IMM GRAN# 0.32 X1000 (0.0-0.04); IMM GRAN% 0.7 % (0.0-0.5); LYMPH# 1.12 X1000 (1.2-3.4); LYMPH% 2.6 % (20.5-51.1); MCH 29.5 PG (27-31); MCHC 32.4 g/dL (33-37); MONO# 1.08 X1000 (0.11-0.59); MONO% 2.5 % (1.7-9.3); MPV 10.2 FL (7.4-10.4); NEUT# 41.07 X1000 (1.4-6.5); NEUT% 94.2 % (42.2-75.2); PLT 376 X1000 (130-400); RBC 2.88 XMIL (4.2-5.4); RDW 16.1 % (11.5-14.5); WBC 43.61 X1000 (4.8-10.8)
[2018-10-13 18:56] LABS: ANISOCYTOSIS 2+; BANDS 7 % (0-1); LYMPHS 4 % (21-51); SEGS 89 % (42-75)
[2018-10-13 19:01] LABS: AGAP 15; BUN 40 mg/dL (8-22); CALCIUM 8.1 mg/dL (8.8-10.2); CHLORIDE 106 mmol/L (98-107); COSMO 291; CREATININE 0.7 mg/dL (0.5-0.9); ESTIMATED GFR > 60; GLUCOSE 130 mg/dL (70-104); POTASSIUM 4.5 mmol/L (3.5-5.1); SODIUM 140 mmol/L (136-145); TCO2 19 mmol/L (25-35)
[2018-10-13] MEDS: SYNTHROID GT SCH (20:12)
[2018-10-13] MEDS: MELATONIN GT SCH (20:12)
[2018-10-13 20:37] LABS: HEMATOCRIT 25.9 % (37.0-47.0); HEMOGLOBIN 8.4 g/dL (12.0-16.0)
[2018-10-13] MEDS ORDERED: ATIVAN GT SCH (21:00)
[2018-10-13] MEDS: TYLENOL PO PRN (22:39)
[2018-10-14] MEDS ORDERED: D50W SYRINGE ONE (00:40)
[2018-10-14] MEDS ORDERED: D50W SYRINGE IV ONE ×2 (00:56)
[2018-10-14] MEDS ORDERED: D50W SYRINGE IV PRN (01:00)
[2018-10-14] MEDS ORDERED: D10W 1,000 ML IV SCH (01:00)
[2018-10-14 01:05] LABS: BASO# 0.02 X1000 (0.0-0.2); BASO% 0.1 % (0.0-0.8); HEMATOCRIT 24.1 % (37.0-47.0); HEMOGLOBIN 7.5 g/dL (12.0-16.0); IMM GRAN# 0.12 X1000 (0.0-0.04); IMM GRAN% 0.3 % (0.0-0.5); LYMPH# 1.33 X1000 (1.2-3.4); LYMPH% 3.8 % (20.5-51.1); MCH 28.7 PG (27-31); MCHC 31.1 g/dL (33-37); MCV 92.3 FL (81-99); MONO# 1.09 X1000 (0.11-0.59); MONO% 3.1 % (1.7-9.3); NEUT# 32.41 X1000 (1.4-6.5); NEUT% 92.7 % (42.2-75.2); PLT 345 X1000 (130-400); RBC 2.61 XMIL (4.2-5.4); RDW 16.6 % (11.5-14.5); WBC 34.97 X1000 (4.8-10.8)
[2018-10-14 01:18] LABS: LYMPHS 5 % (21-51); MONO 3 % (1-9); SEGS 92 % (42-75)
[2018-10-14] MEDS: MESTINON PO SCH ×4 (01:23→20:58)
[2018-10-14] MEDS: AZACTAM 1 GM in NS 50 ML IV SCH ×3 (01:46→18:33)
[2018-10-14] MEDS: DUONEB (A & A) INH SCH ×4 (03:32→21:19)
[2018-10-14 07:16] LABS: BASO# 0.01 X1000 (0.0-0.2); HEMATOCRIT 28.2 % (37.0-47.0); HEMOGLOBIN 9.2 g/dL (12.0-16.0); IMM GRAN# 0.15 X1000 (0.0-0.04); IMM GRAN% 0.5 % (0.0-0.5); LYMPH% 3.8 % (20.5-51.1); MCH 29.6 PG (27-31); MCHC 32.6 g/dL (33-37); MCV 90.7 FL (81-99); MONO# 0.91 X1000 (0.11-0.59); MONO% 3.1 % (1.7-9.3); MPV 10.9 FL (7.4-10.4); NEUT# 26.94 X1000 (1.4-6.5); NEUT% 92.6 % (42.2-75.2); PLT 332 X1000 (130-400); RBC 3.11 XMIL (4.2-5.4); RDW 15.2 % (11.5-14.5); WBC 29.11 X1000 (4.8-10.8)
[2018-10-14 07:33] LABS: AGAP 13; BUN 49 mg/dL (8-22); CALCIUM 7.7 mg/dL (8.8-10.2); CHLORIDE 114 mmol/L (98-107); COSMO 312; CREATININE 0.9 mg/dL (0.5-0.9); ESTIMATED GFR > 60; GLUCOSE 243 mg/dL (70-104); POTASSIUM 4.1 mmol/L (3.5-5.1); SODIUM 146 mmol/L (136-145); TCO2 19 mmol/L (25-35)
[2018-10-14 07:35] LABS: LYMPHS 2 % (21-51); SEGS 98 % (42-75)
[2018-10-14] MEDS ORDERED: LR 1,000 ML IV ONE (08:20)
[2018-10-14] MEDS: EXELON 13.3MG/24HRS TD SCH (08:50)
[2018-10-14 08:53] LABS: HEMATOCRIT 27.8 % (37.0-47.0)
[2018-10-14] MEDS: PROTONIX 80 MG in NS 80 ML IV SCH ×2 (09:09→21:06)
[2018-10-14] MEDS ORDERED: REGLAN IV ONE (09:26)
[2018-10-14] MEDS: CALMOSEPTINE OINTMENT TOP SCH ×2 (09:37→21:06)
--- NOTE | 2018-10-14 09:44 | PROGRESS NOTE ---
DATE: 10/14/2018 INTERVAL HISTORY: Overnight, the patient had decrease in the urine output to less than 20 mL/hour, and so 1 L of normal saline was ordered. The patient had a drop in her hemoglobin overnight, and so she received 1 unit of PRBC overnight. She also had NG tube putting out about 150 mL of bloody output, and she had a dark, tarry, bloody bowel movement in the morning time. She opens mouth to verbal commands and follows simple commands. Does not appear in any acute distress. She is to go for EGD in the morning time. PHYSICAL EXAMINATION: Vital Signs: Temperature of 98.4 degrees, pulse 94, respiratory rate 23, blood pressure 99/59, saturating 95% to 98% on 5 L nasal cannula. General: Does not appear in any acute distress. Mild conjunctival pallor. No cyanosis, clubbing, icterus. She does have cold bilateral hands and legs. Oral cavity does not have significant secretion. Tracheostomy wound appears to have closed. Cardiovascular: S1, S2 normal. Tachycardic. No murmur, rub, or gallop. Lungs: Air entry bilaterally equal. She had crackles in bilateral inframammary region. Abdomen: There is a PEG tube. The site appears noninflamed. Soft. Hypoactive bowel sounds. However, it was difficult to appreciate considering her respiratory efforts and scaphoid abdomen. She has left-sided groin central venous catheter. She has a urine catheter and NG tube. She has a right below-knee amputation. She has mild edema affecting the left foot. She also has a pressure ulcer affecting the left posterior calf, which is dressed. According to yesterday's examination, it appears to be healing well. Input and output suggest that she had 825 mL off. She had 400 mL urine output yesterday, 500 mL urine output today so far. LABORATORY DATA: Most recent WBC of 30,000, hemoglobin of 9, platelet count of 332,000. Coagulation profiles are essentially within acceptable range. Chemistry showing hypernatremia, hyperchloremia, low bicarbonate, elevated BUN, and she did have episode of hypoglycemia overnight where her blood sugars were as low as 24, for which she had required D5 infusion. On reviewing MAR summary, it is not listed that she was on any insulin. However, hypoglycemia was likely in the setting of her being n.p.o. MICROBIOLOGY: Sputum culture is growing gram-negative rods. Blood culture has not shown any growth. IMAGING: Chest x-ray performed today suggests interval placement of NG tube in expected position, but no other new findings. ASSESSMENT AND PLAN: 1. Acute hypoxic respiratory failure in the setting of left hemithorax and suspected bilateral pneumonia with prior history of tracheostomy; now tracheostomy has closed. Continue her on intravenous vancomycin, intravenous aztreonam. Infectious Disease, however, on board. Continue oxygenation to maintain saturation more than 94%. Follow up final blood and sputum culture results. 2. Sepsis in the setting of bilateral pneumonia. Antibiotic management as mentioned above. 3. Upper gastrointestinal bleed, status post nasogastric tube, and so far 3 units of packed red blood cell. Continue Protonix drip. Continue frequent CBC monitoring. Patient to undergo esophagogastroduodenoscopy today. 4. Severe protein energy malnutrition. Hold percutaneous endoscopic gastrostomy tube feeding since she has upper gastrointestinal bleed. 5. Others. Continue pyridostigmine for myasthenia gravis, rivastigmine for advanced dementia, levothyroxine for hypothyroidism, lorazepam for anxiety with sertraline. 6. Disposition. The patient remains in intensive care unit for ongoing upper gastrointestinal bleed. TIME SPENT: More than 30 minutes of critical care time was spent in taking care of this patient. The patient's family is at bedside. I will keep them informed about plan of care and will answer all of their questions. cc: Aldo Herrera MD
[2018-10-14] MEDS ORDERED: VERSED ONE (09:46)
[2018-10-14] MEDS ORDERED: SODIUM CHLORIDE 0.9% 10 ML ONE (09:47)
[2018-10-14] MEDS ORDERED: KETAMINE ONE (09:47)
[2018-10-14] MEDS ORDERED: NEO-SYNEPHRINE ONE (10:20)
--- NOTE | 2018-10-14 11:05 | OPERATIVE NOTE ---
PROCEDURE DATE: 10/14/2018 PROCEDURE: Incomplete upper gastrointestinal (GI) endoscopy. PROVIDER: Homar Mujica MD INDICATIONS: Upper GI bleeding. MEDICATIONS: Monitored anesthesia care. DESCRIPTION OF PROCEDURE: Prior to procedure, a history and physical was performed, and the patient's medication and allergies were reviewed. The patient's tolerance to previous anesthesia was also reviewed. The risks and benefits of the procedure and sedation options and risks were discussed with the family, who signed the consent. All questions were answered and informed consent was obtained. After reviewing the risks and benefits, the patient was deemed in satisfactory condition to undergo the procedure. The endoscope was passed into the oropharynx under direct visualization. Throughout the procedure, the patient's blood pressure, pulse, and oxygen saturations were monitored continuously. The endoscope was introduced through the mouth and advanced to the posterior oropharynx, where altered postsurgical anatomy was encountered. There were no identifiable landmarks to safely pass the endoscope into the esophagus. The pharyngoepiglottic folds were identified, as well as the [*]sinus, but unable to pass the endoscope posteriorly [*]altered anatomy; therefore the procedure was aborted. The patient tolerated the procedure. COMPLICATIONS: No immediate complications. ESTIMATED BLOOD LOSS: Minimal. FINDINGS: Postsurgical oropharyngeal anatomy, unable to pass endoscope beyond the oropharynx. IMPRESSION: Incomplete endoscopy. RECOMMENDATIONS: Keep n.p.o. Continue to trend hemoglobin and hematocrit every 6-8 hours. Transfuse as needed to maintain hemoglobin between 7 and 8. Continue PPI IV b.i.d. Recommend goals of care discussion with family, given the patient's comorbidities, underlying dementia, and GI bleeding. We will follow with you. Please call with any questions or concerns.
--- NOTE | 2018-10-14 11:23 | INFECTIOUS DISEASE PROGRESS NO ---
DATE: 10/14/2018 PRESENT ILLNESS: The patient has aspiration pneumonia. She also has GI bleeding with blood coming from her rectum. MEDICATIONS: The patient is on a combination of vancomycin and aztreonam. This is day 1 of treatment. PHYSICAL EXAMINATION: Vital Signs: Temperature is 98.4 degrees, pulse 94, respirations 23, blood pressure 97/53. General: This is a small, chronically ill and malnourished-appearing, elderly female. She is in no acute distress. Head, eyes, ears, nose and throat: No drainage is noted from the nose or ears. Neck: The patient has a permanent tracheostomy in place. Lungs: There were bilateral rhonchi. Cardiovascular: Heart rate is regular. Abdomen: Soft and nontender. The patient has a PEG tube in place. Extremities: In the right groin, there is a triple-lumen catheter present. Neurologic: The patient is sedated. She had been over in the endoscopy lab. There is no tremor. LABORATORY AND X-RAY: There is no new radiographic study for today. The patient's CBC shows that the white count is now down to 34,970, hemoglobin 7.5, and platelet count is 345,000. Blood cultures are negative. Sputum is growing a gram-negative rodríguez. ASSESSMENT AND PLAN: 1. The patient has aspiration pneumonia. She also is allergic to penicillin. My plan is to continue with vancomycin and aztreonam and if only a gram-negative rodríguez finally grows from the sputum, that I will discontinue vancomycin also. 2. Comorbidities: She is elderly. She has a permanent tracheostomy. The patient also has laryngeal cancer. cc: Mihai Eller MD
[2018-10-14] MEDS: NEURONTIN GT SCH ×2 (11:38→20:55)
[2018-10-14] MEDS: ZYLOPRIM GT SCH (11:39)
[2018-10-14 13:04] LABS: BASO# 0.01 X1000 (0.0-0.2); EOS# 0.01 X1000 (0.0-0.7); HEMATOCRIT 24.2 % (37.0-47.0); HEMOGLOBIN 7.7 g/dL (12.0-16.0); IMM GRAN% 0.7 % (0.0-0.5); MCH 29.2 PG (27-31); MCHC 31.8 g/dL (33-37); MCV 91.7 FL (81-99); MONO# 1.15 X1000 (0.11-0.59); MONO% 4.2 % (1.7-9.3); MPV 11.2 FL (7.4-10.4); NEUT# 25.03 X1000 (1.4-6.5); NEUT% 91.1 % (42.2-75.2); PLT 274 X1000 (130-400); RBC 2.64 XMIL (4.2-5.4); RDW 15.4 % (11.5-14.5)
[2018-10-14 13:23] LABS: BANDS 14 % (0-1); LYMPHS 2 % (21-51); MONO 2 % (1-9); SEGS 82 % (42-75)
[2018-10-14 14:41] LABS: HEMATOCRIT 25.1 % (37.0-47.0)
[2018-10-14] MEDS: NS 1,000 ML IV SCH (19:15)
[2018-10-14 20:51] LABS: HEMATOCRIT 30.6 % (37.0-47.0); HEMOGLOBIN 10.2 g/dL (12.0-16.0)
[2018-10-14] MEDS: SYNTHROID GT SCH (20:55)
[2018-10-14] MEDS: MELATONIN GT SCH (20:58)
[2018-10-15] MEDS: MESTINON PO SCH ×4 (01:34→20:03)
[2018-10-15] MEDS: AZACTAM 1 GM in NS 50 ML IV SCH ×3 (01:34→17:56)
[2018-10-15] MEDS: DUONEB (A & A) INH SCH ×4 (03:01→21:24)
[2018-10-15 05:35] LABS: BASO# 0.01 X1000 (0.0-0.2); BASO% 0.1 % (0.0-0.8); EOS# 0.01 X1000 (0.0-0.7); EOS% 0.1 % (0.0-10.0); HEMATOCRIT 22.7 % (37.0-47.0); HEMOGLOBIN 7.5 g/dL (12.0-16.0); IMM GRAN# 0.04 X1000 (0.0-0.04); IMM GRAN% 0.2 % (0.0-0.5); LYMPH# 0.57 X1000 (1.2-3.4); MCH 28.3 PG (27-31); MCV 85.7 FL (81-99); MONO# 0.68 X1000 (0.11-0.59); MONO% 3.6 % (1.7-9.3); NEUT# 17.59 X1000 (1.4-6.5); PLT 240 X1000 (130-400); RBC 2.65 XMIL (4.2-5.4); RDW 16.6 % (11.5-14.5)
[2018-10-15 06:17] LABS: AGAP 9; BUN 46 mg/dL (8-22); CALCIUM 7.7 mg/dL (8.8-10.2); CHLORIDE 120 mmol/L (98-107); COSMO 311; CREATININE 0.6 mg/dL (0.5-0.9); ESTIMATED GFR > 60; GLUCOSE 117 mg/dL (70-104); POTASSIUM 3.5 mmol/L (3.5-5.1); SODIUM 150 mmol/L (136-145); TCO2 21 mmol/L (25-35)
[2018-10-15 06:40] LABS: ANISOCYTOSIS 2+; BANDS 3 % (0-1); HYPOCHROM 1+; LYMPHS 8 % (21-51); SEGS 87 % (42-75)
--- NOTE | 2018-10-15 08:09 | INFECTIOUS DISEASE PROGRESS NO ---
DATE: 10/15/2018 PRESENT ILLNESS: The patient has aspiration pneumonia. She also has GI bleeding with blood that is coming out from the rectum. MEDICATIONS: This is day 2 of treatment with the combination of vancomycin and aztreonam. PHYSICAL EXAMINATION: Vital Signs: Temperature is 98 degrees, pulse 76, respirations 15, blood pressure 117/45. General: This is a chronically ill and malnourished-appearing, elderly lady. She is in no acute distress. Head, Eyes, Ears, Nose, and Throat: There is no drainage coming from the nose or ears. I could not get a good look into her mouth. Neck: The patient has a permanent tracheostomy in place. Lungs: There was bilateral rhonchi. Cardiovascular: Heart rate is regular. Abdomen: Soft and not tender. A PEG tube is in place. The site is not swollen or draining. Extremities: In the left groin, the patient has a triple-lumen catheter present. The site is not swollen. Neurologic: The patient is more awake today. She does not have a tremor. She did not move her extremities to my request. LAB AND X-RAY: There is no new x-ray for today. The CBC today shows the white count is down now to 18,900, hemoglobin 7.5, and platelet count 240,000. Creatinine is 0.6. GFR is greater than 60. Two separate sputum cultures are growing gram-negative rods. ASSESSMENT AND PLAN: The patient has aspiration pneumonia. She has an allergy to penicillin. I plan to continue aztreonam but discontinue vancomycin since both sputum cultures are growing a gram-negative rodríguez. COMORBIDITIES: In this patient include she is elderly and she has a permanent tracheostomy from laryngeal cancer. She also has a PEG tube in place. cc: Mihai Eller MD
[2018-10-15] MEDS: D5 1/2 NS 1,000 ML IV SCH (08:17)
[2018-10-15] MEDS: PROTONIX 80 MG in NS 80 ML IV SCH ×2 (08:17→17:59)
[2018-10-15] MEDS: ZYLOPRIM GT SCH (08:19)
[2018-10-15] MEDS: EXELON 13.3MG/24HRS TD SCH (08:19)
[2018-10-15] MEDS: NEURONTIN GT SCH ×2 (08:19→20:03)
[2018-10-15] MEDS: CALMOSEPTINE OINTMENT TOP SCH ×2 (08:21→20:04)
--- NOTE | 2018-10-15 09:43 | PROGRESS NOTE ---
DATE: 10/15/2018 INTERVAL HISTORY: The patient underwent EGD. However, the scope could not be passed past the oropharynx considering altered anatomy because of history of laryngeal cancer and radiation. The patient had what is reported as bright red bloody bowel movement at night and guitar maker hand. She, however, remains hemodynamically stable and maintaining her blood pressure. She is getting 1 unit of blood transfusion. SUBJECTIVE: The patient is drowsy. Follows simple commands like opening mouth. Does not appear in any acute distress. According to gastroenterology discussions with the family, the patient's family and surrogate decision makers were moving toward comfort measures, other than being too aggressive in her care. Palliative care is on board. VITAL SIGNS: Currently, vitals show a temperature of 97.6, respiratory rate 15, blood pressure 117/45, saturating 100% on 2 L nasal cannula. PHYSICAL EXAMINATION: General: Does not appear in any acute distress. Oral cavity has some thick secretions. Lungs: Air entry bilaterally equal. There are some upper respiratory sounds that I could auscultate. She does have inframammary crackles bilaterally. Cardiovascular: S1, S2 normal. No murmur, rub, or gallop. Abdomen: Soft. There is a PEG tube in place which has some bleeding around it but it is not significant at the moment. However, it is more than it was before as per the nursing report. She does have tracheostomy. There is no NG tube. She does have a Csatro catheter. Lower Extremity Examination: She has a right below-knee amputation. She has mild edema of left foot, has a pressure ulcer affecting left posterior calf which is dressed. Input and output had suggested that she had 590 mL of urine output so far. Yesterday, she was given 1 unit of packed red blood cells and 1 unit of FFP. ASSESSMENT AND PLAN: 1. Acute hypoxic respiratory failure in the setting of left hemithorax and suspected bilateral pneumonia with prior history of tracheostomy; now tracheostomy has closed. Sputum culture is growing Klebsiella pneumoniae and Pseudomonas aeruginosa. Infectious disease on board. Continue intravenous aztreonam and discontinue vancomycin. 2. Sepsis in the setting of bilateral pneumonia. Antibiotic management as mentioned above. 3. Upper gastrointestinal bleed and acute blood loss anemia. Nasogastric tube was removed at the time of attempt of esophagogastroduodenoscopy so a new nasogastric tube could not be placed afterwards, and attempt to pass the esophagogastroduodenoscopy scope had also failed. Continue transfusion to maintain hemoglobin more than 8 and fresh frozen plasma as required. Continue Protonix drip. I will discuss with the family about further goals of care. Continue sucralfate. 4. Severe protein energy malnutrition. Hold percutaneous endoscopic gastrostomy tube feeding until she is more stable. 5. Others. Hypernatremia, hyperchloremia due to normal saline resuscitation. Change fluids to D5 half-normal saline. 6. Others. Continue pyridostigmine for myasthenia gravis, rivastigmine for advanced dementia, levothyroxine for hypothyroidism, lorazepam and sertraline for insomnia and anxiety. 7. Disposition. The patient remains inside the hospital and her condition is critical. Her code status is Do Not Resuscitate level 1 as per discussion with the family members as well as her surrogate decision maker. I will again discuss further goals of care regarding her upper gastrointestinal bleed with the family. If They would like aggressive management, possible transfer to an outside hospital, and intervention radiology measurements or not. We will pursue further care accordingly. TIME SPENT: More than 30 minutes of critical care time were spent in taking care of this patient. cc: Aldo Herrera MD MTDD
[2018-10-15] MEDS: TYLENOL PO PRN (10:36)
[2018-10-15 12:01] LABS: HEMATOCRIT 23.9 % (37.0-47.0); HEMOGLOBIN 7.6 g/dL (12.0-16.0)
[2018-10-15] MEDS ORDERED: VANCOMYCIN 1 GM/NS 1 GM/250 ML IVPB IV SCH (13:00)
--- NOTE | 2018-10-15 15:30 | PROVIDER PROGRESS NOTE ---
Progress Note 10/15/2018 SUBJECTIVE: No acute overnight events. PEG site revealing some bleeding. this was packed. No N/V/F, CP, SOB, abdominal pain, or melena. Transfused total of 5 units pRBCs since admission. Currently, receiving one unit currently. OBJECTIVE Last Vital Signs Temp 96.7 F L 10/15/18 12:00 Pulse 86 10/15/18 15:02 Resp 21 10/15/18 15:02 BP 144/61 10/15/18 15:02 Pulse Ox 98 10/15/18 15:02 Height 5 ft 2 in Weight 66 lb GEN: chronic ill appearing HEENT: anicteric, MMM CV: RRR, no murmurs PULM: decreased BS throughout ABD: PEG in place with compression dressing, ND EXT: no cce NEURO: awake, moving all extremities spontaneously LABS 10/14/18 10/15/18 10/15/18 00:40 04:35 04:35 WBC 18.90 H Hgb 7.5 L Hct 22.7 L D RDW Std Deviation 16.6 H Sodium 150 H Potassium 3.5 Chloride 120 H Carbon Dioxide 21 L BUN 46 H Creatinine 0.6 Failed EGD 10/14: FINDINGS: Postsurgical oropharyngeal anatomy, unable to pass endoscope beyond the oropharynx. A/P: Ms Lyndsay Lawrence is an 78-year-old woman with a history of laryngeal cancer, severe protein calorie malnutrition, recent admission for NEFTALI who represented with UGIB and bilateral PNA. Attempted EGD yesterday was unsuccessful given altered post-surgical H&N anatomy and stricture. VSS. Patient required multiple transfusions. Currently NPO. #UGIB: continue supportive care, transfuse prn goal hgb 7-8, trending H/H; GOC discussion with family; poor surgical candidate. Could consider transfer for CT angiography and embolization by IR; continue PPI IV BID #Acute on chronic NEFTALI: as above #HCAP: on abx per primary team #MG: noted #Dementia: noted #Severe protein calorie malnutrition: NPO; consider clinimix Will follow with you. Please call with questions or concerns
[2018-10-15 19:40] LABS: HEMATOCRIT 19.9 % (37.0-47.0); HEMOGLOBIN 6.5 g/dL (12.0-16.0)
[2018-10-15] MEDS: SYNTHROID GT SCH (20:03)
[2018-10-15] MEDS: MELATONIN GT SCH (20:03)
--- NOTE | 2018-10-15 20:16 | PROGRESS NOTE ---
DATE: 10/15/2018 ADDENDUM: I went to the bedside to talk with the patient's family; however, they were in the waiting room. I went out and talked with them. The patient's daughter was in the waiting area with the patient's sister. I discussed with them about the patient's critical condition. I told them that considering her altered anatomy, EGD could not be performed, and the patient continues to have bleed. I provided to them that in this case, we could pursue aggressive intervention which may include performing CT angiography to try to find out any bleeding vessel and eventual embolization, for which she might have to be transferred outside of this hospital for further care. I also explained to them about the invasive nature of the procedure, possible complications associated with that. After understanding the risks versus benefit, they decided to pursue other conservative management where they would want me to give patient treatment as much as possible inside this hospital. I explained to them that this may include giving transfusion as needed, giving antacid medications, and ulcer protective medication as needed on a continuous basis, and see if the bleeding stops, which may not happen. They understand the benefit versus risk and after that, they are in agreement with pursuing the conservative measure, keeping the patient in [facility]. The code status remains do not resuscitate. On reviewing the labs, I noted that she further had a drop in her hemoglobin, for which I have ordered 2 units of blood transfusion. cc: MD KETTY Loya
[2018-10-15] MEDS: CARAFATE LIQUID PO SCH (20:48)
[2018-10-15] MEDS ORDERED: NS 250 ML ONE (20:57)
[2018-10-15] MEDS ORDERED: PROTONIX IV SCH (23:44)
[2018-10-16] MEDS: AZACTAM 1 GM in NS 50 ML IV SCH ×2 (01:32→10:09)
[2018-10-16] MEDS: MESTINON PO SCH ×4 (01:33→22:13)
[2018-10-16] MEDS: CARAFATE LIQUID PO SCH ×4 (01:33→22:13)
[2018-10-16] MEDS: DUONEB (A & A) INH SCH ×4 (03:35→22:10)
[2018-10-16] MEDS: D5 1/2 NS 1,000 ML IV SCH (04:25)
[2018-10-16 05:50] LABS: BASO# 0.02 X1000 (0.0-0.2); BASO% 0.1 % (0.0-0.8); EOS# 0.19 X1000 (0.0-0.7); EOS% 1.2 % (0.0-10.0); HEMATOCRIT 31.9 % (37.0-47.0); HEMOGLOBIN 10.9 g/dL (12.0-16.0); IMM GRAN# 0.09 X1000 (0.0-0.04); IMM GRAN% 0.6 % (0.0-0.5); LYMPH# 0.78 X1000 (1.2-3.4); LYMPH% 4.9 % (20.5-51.1); MCH 28.4 PG (27-31); MCHC 34.2 g/dL (33-37); MCV 83.1 FL (81-99); MONO# 0.68 X1000 (0.11-0.59); MONO% 4.3 % (1.7-9.3); MPV 10.8 FL (7.4-10.4); NEUT# 14.18 X1000 (1.4-6.5); NEUT% 88.9 % (42.2-75.2); PLT 164 X1000 (130-400); RBC 3.84 XMIL (4.2-5.4); WBC 15.94 X1000 (4.8-10.8)
[2018-10-16 06:10] LABS: EOS 2 % (1-10); LYMPHS 6 % (21-51); MONO 4 % (1-9); SEGS 88 % (42-75)
[2018-10-16 06:15] LABS: ESTIMATED GFR > 60
[2018-10-16 06:18] LABS: AGAP 9; BUN 27 mg/dL (8-22); CALCIUM 7.5 mg/dL (8.8-10.2); CHLORIDE 126 mmol/L (98-107); COSMO 310; CREATININE 0.3 mg/dL (0.5-0.9); GLUCOSE 126 mg/dL (70-104); POTASSIUM 3.2 mmol/L (3.5-5.1); SODIUM 153 mmol/L (136-145); TCO2 18 mmol/L (25-35)
[2018-10-16] MEDS: NEURONTIN GT SCH ×2 (09:45→22:13)
[2018-10-16] MEDS: EXELON 13.3MG/24HRS TD SCH (09:45)
[2018-10-16] MEDS: CALMOSEPTINE OINTMENT TOP SCH ×2 (09:45→22:13)
[2018-10-16] MEDS: ZYLOPRIM GT SCH (09:45)
[2018-10-16] MEDS: CLINIMIX E 4.25%-5% SOLUTION 1,000 ML IV SCH (11:00)
--- NOTE | 2018-10-16 13:34 | Diag Imaging Result Doc PS360 ---
CT ABD/PELVIS W/ORAL CONT ONLY - 10/16/2018 INDICATION: Bleeding COMPARISON: 10/03/2018 FINDINGS: There is advanced COPD. There is pulmonary edema and pneumonia in the lung bases, mainly in the lower lobes. There is a trace left pleural effusion stable from prior. There is a G-tube in good position. Oral contrast was administered. There is severe body wall edema diffusely. There are some injection granulomas in the subcutaneous tissue over the gluteus muscles bilaterally. There is extremely severe calcified vascular disease of the abdominal aorta and all of its branches. No bowel obstruction or visible free air. The rectal fecal impaction has resolved. IMPRESSION: Severe body wall edema. Severe vascular disease. Pulmonary edema with pneumonia in the lung bases. This exam was performed using automated exposure control, adjustment of mA or kV according to patient size, and/or use of iterative reconstruction technique Electronically signed by Antione Clarke 10/16/2018 1:31 PM
[2018-10-16 13:38] LABS: HEMATOCRIT 34.6 % (37.0-47.0); HEMOGLOBIN 11.7 g/dL (12.0-16.0)
--- NOTE | 2018-10-16 15:44 | GASTROENTEROLOGY CONSULTATION ---
DATE: 10/16/2018 SUBJECTIVE: The patient is resting in bed. She has family at bedside. The patient continues to have bleeding from the PEG tube site. This PEG tube was replaced in mid September 2018 in the ER. She has received a total of 7 units of blood on 1 FFP. EGD was not discussed as the patient has altered anatomy in the laryngeal area. I discussed the options with the patient's family at bedside including the option of doing a CT scan to evaluate the PEG tube position and to see if this anything else that can be offered to help with the GI internal bleeding. The patient's family acknowledged understanding and agreed to proceed with the CT scan. Even going down to have a CT scan is a high risk. I discussed that possibility with the patient's family. They acknowledged and agreed to proceed with the above. PHYSICAL EXAMINATION: Vital Signs: Temperature of 98.5 degrees, pulse rate of 91, respiratory rate of 20, blood pressure of 160/76, saturating 92% on 3 nasal cannula. Body weight of 66 pounds. BMI of 12.1 kg/m2. General Appearance: Emaciated, chronically ill-appearing, lying in bed, in no acute distress. HEENT: Pale conjunctivae. No icterus. Neck: Supple. Abdomen: Emaciated, soft. PEG tube in place. There is some bloody drainage around the external bumper. No guarding. Extremities: No cyanosis and clubbing. Extremities: She is status post right below-knee amputation. Neurological: She was able to wake up on commands but she did not answer any questions. LABS: Hemoglobin and hematocrit are 10.9 and 31.9, white count of 15.94, platelet count of 164,000. Sodium 150, potassium 3.2, chloride of 126, bicarb of 18, anion gap 9, BUN of 27, creatinine 0.3, glucose of 126, calcium is 7.5. Sputum culture showing Pseudomonas aeruginosa and Klebsiella pneumoniae. Blood culture x2 negative at 48 hours. IMPRESSION AND PLAN: 1. Aspiration pneumonia. She is on aztreonam. DR. Eller is following. 2. Gastrointestinal bleeding from the percutaneous endoscopic gastrostomy tube site. We will obtain a CAT scan with oral and intravenous contrast to evaluate the percutaneous endoscopic gastrostomy tube position. I discussed that with the patient's family and they have given us permission to pursue the CT scan. 3. Anemia. Continue to watch for now. Transfuse as needed. 4. Continue on intravenous proton pump inhibitors. 5. Myasthenia gravis. Aware. 6. Dementia. 7. Severe protein calorie malnutrition. We will start her on Clinimix at 50 mL per hour. 8. The above plans were discussed with the patient and family at bedside, and also with the nursing staff, and all questions were answered. Please call us with any further questions. cc: MD Robbin Ambrocio MD Dr. Adams
--- NOTE | 2018-10-16 16:23 | PROGRESS NOTE ---
DATE: 10/16/2018 INTERVAL HISTORY: The patient remains largely encephalopathic with only minimal largely nonverbal response. Does continue to move all extremities. Remains critically ill. Continues to have bloody bowel movements. Small amount of blood from around the PEG and blood suctioned from the mouth. No other acute events overnight. REVIEW OF SYSTEMS: Unable to obtain secondary to patient mental status. LABS: WBC 15.9, initial hemoglobin 10.9, repeat hemoglobin 11.7, platelets 164,000. Sodium 153, potassium 3.2, chloride 126, bicarb 18, BUN 27, creatinine 0.3, glucose 126. VITALS: T-max 98.5 degrees, pulse 70, respirations 16, blood pressure 167/71, O2 saturation 95% on 5 L by nasal cannula. PHYSICAL EXAMINATION: General: No acute distress. Vitals: As above. HEENT: Temporal muscle wasting noted. Atraumatic. No cervical adenopathy. Patient refusing to open mouth, so unable to evaluate mucous membranes. Cardiovascular: Regular rate and rhythm. No gallops noted. Pulmonary: Diffuse rales and rhonchi with faint expiratory wheezing. Abdomen: Soft. PEG, left abdomen. Dressing has a few spots of blood but no active blood from PEG site at this time. Nontender. Bowel sounds decreased but present. Extremities: Right BKA noted. Left leg somewhat contracted. Peripheral pulse significantly decreased but present. Small ulcer noted in the back of the left knee, 3 to 4 mm across, but quite deep with exposed tendon. No erythema, fluctuance, induration, purulent drainage, or other sign of infection. Neurologic: Limited by patient mental status but moves upper extremities slightly on occasion. Does not really follow any commands at the time of my exam, but reportedly would squeeze the nurse's hands earlier. Does not appear to move lower extremities and left leg does appear to have at least mild contractures. Psychiatric: Awake and alert, but largely nonverbal. Occasional monosyllabic responses which only occasionally appear to be related to questioning. Not really cooperative at this time. Skin: Left posterior knee ulcer and as above. ASSESSMENT AND PLAN: 1. Upper gastrointestinal bleed and acute post hemorrhagic anemia: Patient with ongoing signs and symptoms of bleeding, although blood counts are actually somewhat improved after transfusion yesterday. EGD was attempted but unable to be completed secondary to postsurgical changes from patient's previous laryngeal cancer. The family continues to want all conservative measures pursued, so we will continue to monitor blood counts and transfuse as needed. Continue Protonix drip. GI following. 2. Severe protein calorie malnutrition. Patient with PEG but unable to feed at this time secondary to uncontrolled GI bleeding. Patient with profoundly low BMI of 12.1 and significant cachexia on exam. 3. Aspiration pneumonia. Patient on vancomycin and aztreonam as per ID. The patient is afebrile but not really any improvement in oxygen requirements. We will continue to monitor respiratory status. 4. Myasthenia gravis. Continue pyridostigmine. 5. Advanced dementia. Continue rivastigmine but likely not adding a whole lot at this point. 6. Situational anxiety. Continue sertraline and lorazepam. 7. Hypernatremia remains fairly mild, but worsening over the last few days. We will change fluids to half-normal saline and monitor. 8. Hypokalemia. Replete per protocol. 9. Hypothyroidism. Continue Synthroid. 10. Disposition: The patient remains critically ill. Blood counts on recheck this afternoon are actually somewhat improved despite ongoing signs of bleeding. Overall prognosis given advanced age, extremely poor nutritional status, multiple comorbidities, zero functional status is grim. Short-term prognosis guarded. The family has made the patient Do Not Resuscitate, but wish for all conservative measures to be pursued still.
[2018-10-16] MEDS: LEVAQUIN 500 MG/D5W 500 MG/100 ML IVPB IV SCH (17:47)
--- NOTE | 2018-10-16 17:50 | INFECTIOUS DISEASE PROGRESS NO ---
DATE: 10/16/2018 PRESENT ILLNESS: Ms. Lwarence has a bibasilar aspiration pneumonia. There is also an underlying GI bleed. MEDICATIONS: She has been receiving aztreonam 1 g IV every 8 hours. PHYSICAL EXAMINATION: Vital Signs: Temperature is 97.9 degrees, pulse rate 70, respiratory rate 16, blood pressure 167/71, O2 saturation is 95% on 5 L nasal cannula. General: This is a cachectic, chronically ill-appearing, elderly female. She is lying in bed, lethargic and drowsy, no acute distress. HEENT: Conjunctivae are pale. Oral mucous membranes are pink and moist. Neck: There is a tracheostomy stoma noted without any drainage or edema or erythema to the site. Lung Sounds: Have bilateral coarse rhonchi. Cardiovascular: Heart rate and rhythm are regular. Normal sinus rhythm on the monitor. Extremities: She has a triple-lumen catheter in place to the left groin. That site is without edema, erythema, or drainage. There is a right lower extremity [id number] amputation. Abdomen: Soft, flat, and nontender. There is a PEG tube in place. The site has a small amount of bloody drainage noted, but no erythema. Neurologic: She will open her eyes with sternal rub and does say a few words, then closes her eyes again. LABORATORY AND X-RAY: Today her white count is 15.94, hemoglobin 11.7, platelet count 164,000. Creatinine is 0.3, estimated GFR is greater than 60. Her sputum has grown a Pseudomonas aeruginosa which is not susceptible to cefepime. Another sputum culture showed a Klebsiella pneumoniae which is multidrug susceptible, except for resistance to ampicillin. Blood cultures have shown no growth after [address] done of her abdomen and pelvis earlier today showed severe vascular disease, pulmonary edema, and pneumonia in the lung bases. ASSESSMENT AND PLAN: Ms. Lawrence has aspiration pneumonia and has been treated with aztreonam. Today we will discontinue that due to the new cultures which show susceptibility to Levaquin on both organisms. Because of her GI bleed, we will give her Levaquin IV and although she has a very small body surface area, we will order 500 mg based on the presence of multidrug resistant Pseudomonas. These plans have been discussed with and recommended by Dr. Eller. COMORBIDITIES: For Ms. Lawrence include that she is elderly with a tracheostoma, gastrostomy tube, and dementia. Dictated by ALEXANDRA Reyna for Mihai Eller MD This chart was documented by, ALEXANDAR Reyna and accurately reflects the services performed, treatment plan and medical decisions as attested by the providers signature Mihai Eller MD. cc: Mihai Eller MD [facility]
[2018-10-16] MEDS: MELATONIN GT SCH (22:13)
[2018-10-16] MEDS: SYNTHROID GT SCH (22:13)
[2018-10-17] MEDS: CARAFATE LIQUID PO SCH ×4 (01:49→20:35)
[2018-10-17] MEDS: MESTINON PO SCH ×4 (01:50→20:34)
[2018-10-17] MEDS: DUONEB (A & A) INH SCH ×4 (03:08→21:22)
[2018-10-17 05:48] LABS: AGAP 7; BUN 14 mg/dL (8-22); CALCIUM 7.2 mg/dL (8.8-10.2); CHLORIDE 111 mmol/L (98-107); COSMO 289; CREATININE 0.2 mg/dL (0.5-0.9); ESTIMATED GFR > 60; GLUCOSE 130 mg/dL (70-104); POTASSIUM 2.5 mmol/L (3.5-5.1); SODIUM 144 mmol/L (136-145); TCO2 26 mmol/L (25-35)
[2018-10-17] MEDS: D5 1/2 NS 1,000 ML IV SCH (06:17)
[2018-10-17] MEDS: CLINIMIX E 4.25%-5% SOLUTION 1,000 ML IV SCH ×2 (06:17→12:17)
[2018-10-17] MEDS ORDERED: POTASSIUM CHLORIDE 40 MEQ/SWI 40 MEQ/100 ML IVPB IV ONE (07:45)
[2018-10-17] MEDS: NEURONTIN GT SCH ×2 (08:26→20:34)
[2018-10-17] MEDS: EXELON 13.3MG/24HRS TD SCH (08:26)
[2018-10-17] MEDS: ZYLOPRIM GT SCH (08:26)
[2018-10-17] MEDS: CALMOSEPTINE OINTMENT TOP SCH ×2 (08:27→20:45)
--- NOTE | 2018-10-17 11:01 | Diag Imaging Result Doc PS360 ---
CHEST-PORTABLE - 10/17/2018 INDICATION: dyspnea COMPARISON: 10/12/2018 FINDINGS: There is significant worsening in the bilateral infiltrates. There are diffuse bilateral interstitial infiltrates which may represent pulmonary edema. In addition, there are worsening dense infiltrate in the right upper and left lower lung zones. No significant pleural effusion. IMPRESSION: Worsening interstitial pulmonary edema and bilateral dense infiltrates. Electronically signed by Antione Clarke 10/17/2018 10:58 AM
[2018-10-17 11:09] LABS: HEMATOCRIT 32.6 % (37.0-47.0); HEMOGLOBIN 11.1 g/dL (12.0-16.0); MCH 28.6 PG (27-31); MPV 10.5 FL (7.4-10.4); RBC 3.88 XMIL (4.2-5.4); RDW 16.3 % (11.5-14.5); WBC 13.02 X1000 (4.8-10.8)
--- NOTE | 2018-10-17 11:44 | PROVIDER PROGRESS NOTE ---
Progress Note SUBJECTIVE: No acute overnight events. No nausea, vomiting, or fever. No CP, SOB, abdominal pain. No BM. OBJECTIVE: Last Vital Signs Temp 97.4 F L 10/17/18 08:00 Pulse 90 10/17/18 10:02 Resp 24 10/17/18 10:02 BP 170/74 10/17/18 10:02 Pulse Ox 100 10/17/18 10:02 Height 5 ft 2 in Weight 66 lb GEN: awake, alert, NAD HEENT: anicteric, MMM NECK: supple, no jvd CV: RRR, no murmurs PULM: coarse BS with crackles throughout, no wheezing ABD: soft NT, ND, PEG c/d/i, BS present EXT: no cce NEURO: nonfocal LABS: 10/17/18 10/17/18 04:45 11:00 WBC 13.02 H Hgb 11.1 L Plt Count 150 Sodium 144 Potassium 2.5 L* D Chloride 111 H Carbon Dioxide 26 BUN 14 Creatinine 0.2 L Glucose 130 H CHEST-PORTABLE - 10/17/2018 INDICATION: dyspnea COMPARISON: 10/12/2018 FINDINGS: There is significant worsening in the bilateral infiltrates. There are diffuse bilateral interstitial infiltrates which may represent pulmonary edema. In addition, there are worsening dense infiltrate in the right upper and left lower lung zones. No significant pleural effusion. IMPRESSION: Worsening interstitial pulmonary edema and bilateral dense infiltrates. CTAP 10/16 IMPRESSION: Severe body wall edema. Severe vascular disease. Pulmonary edema with pneumonia in the lung bases. A/P: Ms Lyndsay Lawrence is an 78-year-old woman with a history of laryngeal cancer, severe protein calorie malnutrition, recent admission for NEFTALI who represented with UGIB and bilateral PNA. Attempted EGD 10/14 was unsuccessful given altered post-surgical H&N anatomy and stricture. VSS. Patient has not received blood since 10/15. #UGIB: continue supportive care, transfuse prn goal hgb 7-8, trending H/H; poor surgical candidate. Could consider transfer for CT angiography and embolization by IR; continue PPI IV BID #Acute on chronic NEFTALI: as above #HCAP: on abx per primary team #MG: noted #Dementia: noted #Severe protein calorie malnutrition: PEG in good position on CT; ok to resume TFs via PEG; nutrition consulted #Hypokalemia: replete prn Recommend ongoing GOC discussion with family. Will follow with you. Please call with questions or concerns
[2018-10-17] MEDS ORDERED: SODIUM CHLORIDE 0.9% INJ SCH (12:15)
[2018-10-17] MEDS ORDERED: PROTONIX IV SCH (12:15)
[2018-10-17] MEDS: LASIX IV SCH (12:17)
--- NOTE | 2018-10-17 12:24 | PROGRESS NOTE ---
DATE: 10/17/2018 SUBJECTIVE: Patient has no focal complaints. OBJECTIVE: Vital Signs: Blood pressure 170/74, heart rate 90, respiratory rate 24, and temperature was 97.4 degrees. Cardiovascular: Regular rate and rhythm. Pulmonary: Bilateral breath sounds. Clear to auscultation. GI: Soft, nontender, and nondistended. Bowel sounds are positive. LABORATORY DATA: White count is 13, hemoglobin and hematocrit 11 and 32, and platelets 150,000. Potassium is 2.5. Her pulmonary exam, she just sounds wet and upper respiratory. Her chest x-ray looks terrible. PROBLEM LIST: 1. GI bleed that seems to be resolving. It looks like she may have an aspiration type pneumonia possibly. In any case, her hemoglobin and hematocrit is stable. We will continue to follow. I believe she has some component of volume overload so we will adjust that. 2. Severe protein-calorie malnutrition. We are going to resume tube feeds per dietary. I put some preliminary orders in, but they will be decided by dietary service. 3. Aspiration pneumonia. She is on vancomycin and aztreonam. From a chest x-ray standpoint, it is much worse. I do not know if she has aspirated again. She is not per se on anaerobic coverage, but ID is following so we will defer to them. 4. Disposition. She is a DNR. She has kind of a poor prognosis. Family wants current measures maintained, but not long-term measures, not very aggressive measures otherwise. We will continue to follow. DISPOSITION: Pending her clinical status. Prognosis is guarded. cc: Alvin Quinones MD
--- NOTE | 2018-10-17 14:40 | INFECTIOUS DISEASE PROGRESS NO ---
DATE: 10/17/2018 PRESENT ILLNESS: The patient has bilateral aspiration pneumonia. She also has an underlying GI bleed. MEDICATIONS: The patient was switched yesterday to Levaquin 500 mg IV daily. PHYSICAL EXAMINATION: Vital Signs: Temperature is 97 degrees, pulse 95, respirations 25, blood pressure 155/76. The patient's weight is listed as 66 pounds. General: This is an ill- appearing, elderly female. She is lying in bed and seems to be dyspneic at rest. Head, eyes, ears, nose, throat: I could not get a very good look in her mouth. She did not open her mouth hardly at all. Neck: Patient has a tracheostomy stoma in place. Lungs: There were bilateral rhonchi. Cardiovascular: Heart rate is regular. Abdomen: Soft and nontender. A G-tube is in place. Neurologic: The patient remains lethargic. She did not do any of my requests, such as moving her extremities. Integument: No rash noted. LAB AND X-RAY: Chest x-ray shows worsening infiltrates/edema. CBC shows a white count of 13,020, hemoglobin 11.1, and platelet count 150,000. Creatinine is 0.2. GFR is greater than 60. Sputum cultures are growing Pseudomonas and Klebsiella. ASSESSMENT AND PLAN: Patient has pneumonia and/or pulmonary venous congestion. I am going to continue with antibiotics. I have switched the patient to Levaquin. COMORBIDITIES: The patient is elderly. She has a tracheostomy stoma in place. She also has a gastrostomy tube. The patient is demented as well. cc: Mihai Eller MD
[2018-10-17] MEDS: LEVAQUIN 500 MG/D5W 500 MG/100 ML IVPB IV SCH (16:51)
[2018-10-17] MEDS: SYNTHROID GT SCH (20:34)
[2018-10-17] MEDS: MELATONIN GT SCH (20:35)
[2018-10-18] MEDS: LASIX IV SCH ×2 (00:28→11:34)
[2018-10-18] MEDS: CLINIMIX E 4.25%-5% SOLUTION 1,000 ML IV SCH ×2 (00:29→16:39)
[2018-10-18] MEDS: CARAFATE LIQUID PO SCH ×2 (03:01→08:00)
[2018-10-18] MEDS: MESTINON PO SCH ×4 (03:01→20:15)
[2018-10-18] MEDS: DUONEB (A & A) INH SCH ×4 (03:22→22:14)
[2018-10-18 06:34] LABS: BASO# 0.02 X1000 (0.0-0.2); BASO% 0.2 % (0.0-0.8); EOS# 0.09 X1000 (0.0-0.7); HEMATOCRIT 25.9 % (37.0-47.0); HEMOGLOBIN 8.2 g/dL (12.0-16.0); IMM GRAN# 0.02 X1000 (0.0-0.04); IMM GRAN% 0.2 % (0.0-0.5); LYMPH# 0.89 X1000 (1.2-3.4); LYMPH% 10.3 % (20.5-51.1); MCH 27.3 PG (27-31); MCHC 31.7 g/dL (33-37); MCV 86.3 FL (81-99); MONO# 0.99 X1000 (0.11-0.59); MONO% 11.5 % (1.7-9.3); NEUT# 6.59 X1000 (1.4-6.5); NEUT% 76.8 % (42.2-75.2); PLT 151 X1000 (130-400); RDW 16.2 % (11.5-14.5)
[2018-10-18 06:52] LABS: MAGNESIUM 1.2 mg/dL (1.5-2.7); PHOSPHORUS 2.6 mg/dL (2.7-4.5)
[2018-10-18 07:07] LABS: AGAP 7; BANDS 40 % (0-1); BUN 29 mg/dL (8-22); CALCIUM 7.4 mg/dL (8.8-10.2); CHLORIDE 103 mmol/L (98-107); COSMO 293; CREATININE 0.3 mg/dL (0.5-0.9); EOS 2 % (1-10); ESTIMATED GFR > 60; GLUCOSE 129 mg/dL (70-104); LYMPHS 8 % (21-51); MONO 2 % (1-9); POTASSIUM 3.1 mmol/L (3.5-5.1); SEGS 48 % (42-75); SODIUM 143 mmol/L (136-145); TCO2 33 mmol/L (25-35)
[2018-10-18 07:08] LABS: ANISOCYTOSIS 1+; HYPOCHROM 2+; POIKILOCYTOSIS 1+
[2018-10-18] MEDS ORDERED: NS 1,000 ML IV ONE (07:27)
[2018-10-18] MEDS ORDERED: NS 1,000 ML ONE (07:28)
[2018-10-18] MEDS ORDERED: CALCIUM CHLORIDE 1 GM in NS 100 ML IV ONE (07:32)
[2018-10-18] MEDS: LEVOPHED 8 MG in D5 1/2 NS 250 ML IV SCH ×3 (07:42→21:47)
[2018-10-18] MEDS ORDERED: PITRESSIN 40 UNIT in NS 100 ML IV SCH (07:45)
--- NOTE | 2018-10-18 07:57 | Diag Imaging Result Doc PS360 ---
CHEST-PORTABLE - 10/18/2018 INDICATION: dyspnea COMPARISON: 10/17/2018 FINDINGS: Stable coarse heterogeneous interstitial infiltrates bilaterally. Heart size is normal. No pneumothorax or large pleural effusion. IMPRESSION: No change from prior. Electronically signed by Antione Clarke 10/18/2018 7:55 AM
--- NOTE | 2018-10-18 07:58 | Diag Imaging Result Doc PS360 ---
KUB ABDOMEN - 10/18/2018 INDICATION: gib COMPARISON: 09/22/2018 FINDINGS: There is a G-tube in the left upper quadrant. There appears to be a femoral venous catheter in the left groin. There is a nonobstructive bowel gas pattern. No free air or abnormal calcifications. No significant constipation. IMPRESSION: No acute disease. Electronically signed by Antione Clarke 10/18/2018 7:56 AM
[2018-10-18] MEDS: ZYLOPRIM GT SCH (08:00)
[2018-10-18] MEDS: NEURONTIN GT SCH (08:00)
[2018-10-18] MEDS ORDERED: PROTONIX IV SCH (08:15)
[2018-10-18] MEDS: EXELON 13.3MG/24HRS TD SCH (08:28)
[2018-10-18] MEDS: CALMOSEPTINE OINTMENT TOP SCH ×2 (08:31→21:00)
[2018-10-18] MEDS ORDERED: NS 500 ML ONE (08:41)
[2018-10-18 08:56] LABS: ALLEN TEST YES; BE 1.9 mmoll (-3.0-3.0); BLOOD TYPE ARTERIAL; HCO3-(ACT) 26.4 mmoll (20.0-26.0); METHB 1.2 % (0.0-1.5); O2(CT) 9.9 mL/dL (15.0-23.0); O2HB 93.8 % (95.0-99.0); PO2(98.6) 79 mmHg (60-100); SAMPLE BLOOD; SAO2 96.6 % (95.0-100.0); THB 7.4 g/dL (11.5-17.4); pH(98.6) 7.21 (7.35-7.45)
[2018-10-18 08:57] LABS: MODALITY NRB; PCO2(98.6) 76 mmHg (35-45)
[2018-10-18] MEDS ORDERED: MAGNESIUM SULFATE 1 GM/D5W 1 GM/100 ML IVPB IV ONE ×2 (09:06→12:46)
[2018-10-18] MEDS ORDERED: POTASSIUM CHLORIDE 40 MEQ/SWI 40 MEQ/100 ML IVPB IV ONE (11:30)
[2018-10-18] MEDS ORDERED: SYNTHROID IV ONE (12:46)
[2018-10-18] MEDS ORDERED: SODIUM CHLORIDE 0.9% INJ PRN (12:46)
[2018-10-18] MEDS ORDERED: SODIUM CHLORIDE 0.9% INJ ONE (12:46)
[2018-10-18 13:06] LABS: HEMATOCRIT 27.7 % (37.0-47.0); HEMOGLOBIN 8.8 g/dL (12.0-16.0)
[2018-10-18 13:15] LABS: INR 1.31; PROTIME 17.3 Seconds (11.0-16.0)
[2018-10-18] MEDS ORDERED: SODIUM PHOSPHATE 40 MEQ in NS 250 ML IV ONE (13:15)
[2018-10-18 13:16] LABS: PTT 70.6 Seconds (22.3-41.8)
[2018-10-18] MEDS: PROTONIX 80 MG in NS 80 ML IV SCH ×2 (13:34→22:46)
--- NOTE | 2018-10-18 13:48 | PROGRESS NOTE ---
DATE: 10/18/2018 SUBJECTIVE: The patient has no focal complaints, but she is very out of it. OBJECTIVE: Vitals: Blood pressure 129/49, heart rate of 88, respiratory rate 25, temperature 99.4 degrees. Overnight she had picked up her bleeding. This morning she was hypotensive and had low O2 saturations. General: She is hypercapnic and acidotic. She is hypokalemic, hypomagnesemic, and hypophosphatemic. Cardiovascular: Regular rate and rhythm. Pulmonary: She has diffuse rales, rhonchi, increased work of breathing. GI: Soft, nontender, nondistended. Bowel sounds were positive. LABORATORY DATA: Her hemoglobin and hematocrit this morning had dropped to 8.8 and 27, from 11 and 32. Her chest x-ray has worsened. Her white count is 8, hemoglobin and hematocrit is 8 and 25 up to 8.8 and 27, platelets of 151,000. Potassium is 3.1. Magnesium of 1.2. Phosphorous of 2.6. Her pH was 7.21, pCO2 76, PaO2 79. PROBLEM LIST: 1. Acute GI bleed, upper GI bleed. She is bleeding from her PEG sites. Her larynx is obstructed and her esophagus is obstructed. An EGD was not able to be pursued, but she is essentially still having bleeding. We will continue supportive care. Family wants medical measures but no aggressive measures, which include surgery. She is hypotensive and had to be started on pressors. We will continue to follow. 2. Severe protein-calorie malnutrition. She is on Clinimix at this point because she cannot tolerate tube feeds and she is actively bleeding. 3. Shock, likely hemorrhagic at this point. We will continue Levophed and follow closely. 4. Pneumonia. She is on Levaquin. We will continue empiric antibiotics. 5. Hypothyroidism. She is on IV Synthroid because she is not taking anything p.o. DISPOSITION: The patient is critically ill. She is in respiratory failure, she is in shock, she has encephalopathy. Her prognosis is at least a 75% mortality. I discussed this with the family that #1 we are going to have difficulty managing her issues with plain medications and there is not really a lot of surgical options because she cannot be intubated and she cannot be intubated for endoscopy, and they understand that. 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 I believe Pulmonary has been consulted. I may consult them, but I am not sure if really there is going to be anything else to do at this point. I have discussed with the family about her poor prognosis, I think, the daughter, so we will continue to follow. There are really limits to what we can do. I even encouraged them to consider comfort care measures and they are thinking about it, although at this point they do not want to change anything, but if she continues to deteriorate and she is just bleeding and we cannot control it, this at some point will become futile care, and I think they have an understanding of how sick she is and how likely she is not going to be to leave the hospital alive or improved at this point. She is a DNR. We will continue the current measures as described. cc: Alvin Quinones MD
--- NOTE | 2018-10-18 14:06 | GASTROENTEROLOGY PROGRESS NOTE ---
DATE: 10/18/2018 SUBJECTIVE: Patient of Dr. Mujica. I was called this morning regarding the patient's change in condition. Apparently, she had copious amount of blood coming out of the PEG tube, and her hemoglobin and hematocrit have dropped. Upon reviewing the case, it appears that the patient has presented with GI bleed and Dr. Mujica had tried upper endoscopy and was unable to intubate because of the postsurgical oropharyngeal anatomy, and he was unable to intubate the esophagus. The patient has been on proton pump inhibitor and had started bleeding again. Her hemoglobin had dropped from 11.1 to 8.2 today. She is in the process of getting blood transfusion. VITAL SIGNS: Temperature 97.3 degrees, pulse was 94 per minute, breathing at 29, blood pressure was 117/44. PEG tube again has a copious amount of dark red liquid draining into the container per gravity. Abdomen otherwise soft. Bowel sounds are audible. IMPRESSION: Acute gastrointestinal bleed, anemia secondary to gastrointestinal bleed. The patient appears to have lost a significant amount of blood resulting in her hemoglobin and hematocrit to drop, but unfortunately endoscopy cannot be done because of the postsurgical changes. I have discussed the findings with the patient's family members about the option of surgical intervention, but they, at this point, did not want to proceed with that route. They want to continue supportive care and intravenous proton pump inhibitor. I will be available if needed over the weekend, and Dr. Mujica will peanut picker the case on Saturday. cc: Cruz Huitron MD
[2018-10-18] MEDS ORDERED: OFIRMEV 1000 MG/ISOTONIC SOLN 1,000 MG/100 ML BOTTLE IV PRN (14:45)
[2018-10-18] MEDS: LEVAQUIN 500 MG/D5W 500 MG/100 ML IVPB IV SCH (16:39)
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
[2018-10-18 21:03] LABS: HEMATOCRIT 30.2 % (37.0-47.0); HEMOGLOBIN 9.7 g/dL (12.0-16.0)
[2018-10-19] MEDS: LASIX IV SCH (00:15)
[2018-10-19 00:38] LABS: HEMATOCRIT 28.4 % (37.0-47.0); HEMOGLOBIN 8.9 g/dL (12.0-16.0)
[2018-10-19] MEDS: MESTINON PO SCH (02:00)
[2018-10-19] MEDS: DUONEB (A & A) INH SCH ×2 (03:14→19:19)
[2018-10-19] MEDS ORDERED: MORPHINE IV PRN (03:49)
[2018-10-19] MEDS: CLINIMIX E 4.25%-5% SOLUTION 1,000 ML IV SCH (06:21)
[2018-10-19] MEDS ORDERED: SYNTHROID IV SCH (07:00)
[2018-10-19 07:18] VITALS: BP 56/18
--- NOTE | 2018-10-27 11:18 | DISCHARGE SUMMARY ---
ADMISSION DATE: 10/13/2018 DISCHARGE DATE: 10/19/2018 DISCHARGE DIAGNOSES: 1. Acute upper GI bleed with PEG. 2. Severe protein-calorie malnutrition. 3. Hemorrhagic shock. 4. Pneumonia. 5. Hypothyroidism. CAUSE OF : She . I think her cause of would be hemorrhagic shock associated with unknown bleeding site, but presumably upper GI bleed because she was actively having bleeding from her upper GI area, and then it progressed to respiratory failure. CONSULTATIONS: 1. Dr. Saldana with GI. 2. Dr. Eller with Infectious Diseases. 3. Dr. Guzman with Pulmonary. PROCEDURE: Esophagogastroduodenoscopy although it was just incomplete. They could not complete it. HISTORY: The patient was admitted on the with a pneumonia in the right upper lobe and a lingular and left lower lobe pneumonia. 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 She had been recently admitted for healthcare acquired pneumonia. She is a correction patient. She started vomiting up blood. She has a PEG tube for feeding because she cannot tolerate p.o. She had been discharged on clindamycin. History of myasthenia gravis as well below-knee amputation. She was a DNR on admission. She was placed on vancomycin and Azactam. Attempts were made to do an endoscopy that was on the , but could not be completed. Per Dr. Mujica, he just could not completely pass the scope. She did have Pseudomonas grow out of one sputum culture and Klebsiella out of the other. They were sensitive to Levaquin and gentamicin. Klebsiella was sensitive to everything except ampicillin. The patient had a CT done on the , which showed severe body wall edema which is understandable. She had significant anasarca from protein calorie malnutrition. It was difficult to feed her because she was having active bleeding through her PEG tube. She was placed on Levaquin for the Pseudomonas per Dr. Eller. When I saw her on the , the bleeding had stopped, but she had developed a worsening aspiration pneumonia. She was not breathing well with rhonchorous breath sounds. We tried to start tube feeds, but she started bleeding again. She is DNR. Family wanted current measures pursued, but nothing more aggressive. On the , she had clinically deteriorated. She was on a non-rebreather. She was actively having bleeding. Her hemoglobin and hematocrit dropped. We put her on Clinimix because she did not have any nutritional support. We had to start Levophed for blood pressure support. She was minimally responsive, certainly not oriented. We discussed more with the family, I did not think BiPAP was really going to be an option with her laryngeal stenosis either. Family understood the poor prognosis. DNR was confirmed. However, they did not want to stop any measures at this point. She ended up getting 9 total units of blood and 3 units of FFP. Her hemoglobin and hematocrit on the th had dropped to 6.5 and 19. Her INR was 1.3 on the 16th. However, despite these measures, she continued to deteriorate. I did consult Dr. Guzman, who recommended prognosis was poor. Continue treatment as discussed. I discussed that if she does not improve that she is actively dying and that she could within the next 24 hours which was indeed the case. She did continue to have low blood pressures; and vasopressin had been added, but family decided to withdraw care so Levophed and vasopressin were stopped at 04:00. The patient was pronounced at 6:08. Family aware. cc: MD Robbin Starks MD Dr. Arora MTDD
== END 2018-10-19 06:08 | disposition expired | DRG 377 ==
LOC: SUPCPDRO → ED 20:04 → ICU 10-13 01:18 → SUATTDRO 10-13 01:18
PROVIDERS: ATTEND Internal Medicine
CPT/HCPCS: 36430; 71010; 71045; 74000; 74018; 74176; 80048; 80053; 81001; 82550; 82805; 82948; 83605; 83735; 84100; 84484; 85014; 85018; 85025; 85027; 85610; 85730; 86850; 86900; 86901; 86920; 87040; 87070; 87077; 87186; 87205; 94640; 94761; 96361; 96365; 96366; 97162; 99285; 99291; A9270; C9113; J1940; J1956; J2250; J2270; J2370; J2405; J2765; J3370; J3475; J3480; J7030; J7040; J7050; J7120; P9016; P9017; S0073; S0164; XXXXX